=== PATIENT | male | born 1980 | race Caucasian/White ===

== ENCOUNTER 2024-05-23 19:10 | Emergency (ER) | payer OTHER, SELFPAY ==
[2024-05-23 19:10] VITALS: BP 167/107; PULSE 89; RESP 18; TEMP 36.8; O2SAT 98
--- NOTE | 2024-05-23 19:12 | PC.NURSE ---
TONYA NOVA AT THE BEDSIDE CLEANING WOUND
--- NOTE | 2024-05-23 19:13 | ED_ITS ---
HPI - Wound/Laceration General Chief Complaint: Wound/Laceration Stated Complaint: Laceration Injury Time Seen by Provider: 05/23/24 19:12 Source: patient Mode of arrival: ambulatory Limitations: no limitations History of Present Illness HPI narrative: 43-year-old male with a history of GERD, hypertension not on any medication accidentally slashed his left index finger while using his pocket knife. he presents to the ED with a C-shaped laceration over the dorsum of the left index finger over the PIP. Normal range of motion. Distal neurovascular bundle is intact. Patient is not up-to-date on his tetanus. Onset (ago): hour(s) ( 1 hour ago) Location: other ( right index finger) Extremity Location: Right: hand Body four view annotation: 2 1. 2 cm C-shaped laceration on the back of left index finger over the PIP. Place: home Patient tetanus UTD: No Context: accidental Associated symptoms: pain Related Data Allergies Allergy/AdvReac Type Severity Reaction Status Date / Time No Known Allergies Allergy Verified 05/23/24 19:48 Review of Systems 2 Review of Systems: All systems reviewed & are unremarkable except as noted in HPI and below PMFSH Past Medical History Medical History (Updated 05/23/24 @ 19:45 by Emir Rivas MD) GERD (gastroesophageal reflux disease) Hypertension Exam 2 Narrative: blood pressure 167/107. Afebrile. Const: General: no acute distress Nutritional Appearance: well nourished Orientation/consciousness: patient oriented x3 Limitations: no limitations HENMT: Head: normal to inspection Ears: external ears normal F jr/Nose/Sinus: Normal external nose present Face and sinus: normal facial exam Mouth: Yes Normal oral and palatal mucosa present Throat: posterior oropharynx normal Eyes: Conjunctivae: conjunctivae normal Pupils: Equal, round and reactive pupils present EOM: EOMs intact bilaterally Direct Ophthalmoscopy: no photophobia Neck: Neck: normal visual inspection, no lymphadenopathy and no meningeal signs Chest: Chest palpation & inspection: normal inspection of the chest Resp: Effort & Inspection: normal respiratory effort Auscultation: clear to auscultation bilaterally Cardio: Rate: regular rate Rhythm: regular rhythm GI: GI Palp: Yes Soft to palpation Auscultation: normal bowel sounds Skin: Other: C shaped laceration over the left index finger measuring 2 cm. laceration full-thickness skin laceration Neuro: General: patient oriented x3, moves all extremities, no meningeal signs, no focal motor deficits and CN's II-XI intact bilaterally Cranial nerves: Yes Nystagmus not present Speech: normal speech Gait exam (Neuro): Normal gait present Extrem: General: normal to inspection Other: finger laceration measuring 2 cm Psych: Mental Status: mental status grossly normal Affect: normal affect Attitude: cooperative Course Course Emergency Course: finger laceration-- sutured Vital Signs Vital signs: Vital Signs Temperature 36.8 C 05/23/24 19:10 Pulse Rate 89 05/23/24 19:10 Respiratory Rate 18 05/23/24 19:10 Blood Pressure 167/107 H 05/23/24 19:10 Pulse Oximetry 98 05/23/24 19:10 Oxygen Delivery Room Air 05/23/24 19:10 Temperature 36.8 C 05/23/24 19:10 Pulse Rate 89 05/23/24 19:10 Respiratory Rate 18 05/23/24 19:10 Blood Pressure 167/107 H 05/23/24 19:10 Pulse Oximetry 98 05/23/24 19:10 Oxygen Delivery Room Air 05/23/24 19:10 Procedures Laceration Laceration 1: Date: 05/23/24 Time: 19:15 Site: other ( finger laceration) Side (If applicable): left Size (cm): 2 Description: irregular Depth: simple, single layer Local Anesthetic: lidocaine 1% Amount of anesthesia used (mL): 5 Pre-repair: wound explored ====== Skin Level ====== Skin layer closed with: nylon Size (cm): 4-0 Number of sutures: 6 Technique: running ====== Subcutaneous Layer ====== ====== Muscle Layer ====== ====== Tendon Layer ====== MDM - Wound/Laceration MDM Narrative Medical decision making narrative: finger laceration hypertension-- patient has medication prescribed by his primary care physician but the patient is not taking it. Differential Diagnosis Differential diagnosis: Likely abrasion Discharge Plan Discharge Clinical Impression: Finger laceration Qualifiers: Encounter type: initial encounter Finger: index finger Damage to nail status: w ithout damage Foreign body presence: without foreign body Laterality: left Q ualified Code(s): S61.211A - Laceration without foreign body of left index finger without damage to nail, initial encounter Hypertension Qualifiers: Hypertension type: unspecified Qualified Code(s): I10 - Essential (primary) hypertension Patient Disposition: Home, Self-Care Condition: Stable Instructions: Antibiotic Form, Laceration (ED), Hypertension (ED) Additional Instructions: monitor for infection suture removal in 10 days use the finger splint for 5 days Patient Language: Faroese Prescriptions: New cephalexin 500 mg capsule 500 mg PO Q6H 7 Days Qty: 28 0RF Follow-up/Referrals: Tom Mckeon M.D. [Primary Care Provider] - Time of Disposition: 19:53
[2024-05-23] MEDS: TETANUS,DIPHTHERIA,AC PERTUSSIS ADULT 0.5 ML (ADACEL) IM (19:45)
[2024-05-23] MEDS: LIDOCAINE 1% LOCAL INJ 10 ML VIAL 5 ML INFILTRATE (19:45)
[2024-05-23] MEDS: CEPHALEXIN 500 MG CAPSULE PO (19:50)
[2024-05-23 19:53] VITALS: BP 160/103; PULSE 77; RESP 18; TEMP 37; O2SAT 97
--- NOTE | 2024-05-23 19:53 | PC.NURSE ---
DR PADILLA AWARE OF CURRENT BLOOD PRESSURE. CONTINUE WITH DISCHARGE. PATIENT IS TO FOLLOW UP WITH PCP WITHIN THE WEEK. DOES NOT WANT TO TAKE BLODO PRESSURE MEDICATIONS AT THIS TIME
--- NOTE | 2024-05-23 19:59 | PC.NURSE ---
[facility] SPLINT [facility] WOUND CARE COMPLETED BY TONYA NOVA
--- OUTSIDE RECORDS SUMMARY | 2024-05-28 02:40 | XMS_ITS | Encounter Summary ---
Author Organization [facility] Address [address] [place] [address]. [place] [address] [place] [address] Care Team Providers Care Pot Operator Name Role Phone Julio César Tello MD Primary Care Provider [phone] Reason for Referral * Procedure (Routine) - New Request Specialty Diagnoses / Procedures Referred By Veronique t Referred To Contact Diagnoses Chronic cough Procedures Complete PFT (pre/post Sujrit, Lung Vol, Diff Capacity) ([id number], [id number], [id number], [id number]) Annabel Cordoba PA [address] [place] [address] Phone: tel: fax: Referral ID Status Reason Start Date Expiration Date V isits Requested Visits Authorized [id number] New Request 12/18/2023 01/17/2025 1 1 Encounter Details Date Type Department Care Team (Late st Contact Info) Description 12/18/2023 Transcribe Orders [facility] Pre Access Team [address] [place] [address] Annabel Cordoba PA [address] [place] [address] Social History Tobacco Use Types Packs/Day Years Used Date Smoking Tobacco: Every Day Cigarettes Smokeless Tobacco: Never Alcohol Use Standard Drinks/Week Comments No 0 (1 standard drink = 0.6 oz pur e alcohol) AUDIT-C Answer Date Recorded Frequency of Alcohol Consumption Never 03/18/2019 Average Number of Drinks Not on file 019 Frequency of Binge Drinking Not on file 02/2019 Sex and Gender Information Value Date Recorded Sex Assigned at Not on file 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 The patient had spirometry before and after bronchodilators, lung volumes, diffusion lung capacity. Pulmonary function test is acceptable and reproducible. ??Spirometry was normal FEV1 is 3.26 liters or 84%. ??FVC 93% with normal ratio FEV1/FVC, no improvement with the bronchodilators, normal lung volumes. ??TLC 93% and diffusion lung capacity normal at 78%, went up to 94% when adjusted to the alveolar volume. IMPRESSION: Normal spirometry, lung volumes, and diffusion lung capacity. ?? Clinical correlation is required. Signature/Date: ? Chastity MIN MD D: ??01/16/2024 09:12 PM ??#[id number] T: ??01/16/2024 09:31 PM ??/NIT A copy of this report has been sent to: JULIO CÉSAR TELLO MD(Captimo) us Annabel Cordoba PA PFT ORDERABLES Final Result ESCRIPTION documented in this encounter Visit Diagnoses Diagnosis Chronic cough- Primary Cough Chronic cough Cough documented in this encounter Care Teams Pot Operator Relationship Specialty Start Date End Date Julio César Tello MD [address] [place] [address] PCP - General FAMILY PRACTICE 04/10/23 documented as of this encounter
--- OUTSIDE RECORDS SUMMARY | 2024-05-28 02:40 | XMS_ITS | Encounter Summary ---
Author Organization [facility] Address [address] [place] [address]. 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
--- OUTSIDE RECORDS SUMMARY | 2024-05-28 02:40 | XMS_ITS | Clinical Summary ---
Author Organization [facility] Address [address] [place] [address]. [place], [place] [id number] [place] [address] Care Team Providers Care Associate Professor Of Medicine Name Role Phone Julio César Tello MD Primary Care Provider [phone] Allergies No known active allergies Medications amLODIPine (NORVASC) 5 MG tablet Take 1 tablet (5 mg total) by mouth daily. 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 Gender Identity Not on file Sexual Orientation Not on file Last Filed Vital Signs Vital Sign Reading Time Taken Comments Blood Pressure 139/95 10/24/2023 3:45 PM CDT Pulse 90 10/24/2023 3:45 PM CDT Temperature 36.9 ??C (98.4 ??F) 10/24/2023 2:44 PM CD T Respiratory Rate 16 10/24/2023 2:44 PM CDT Oxygen Saturation 98% 10/24/2023 3:45 PM CDT Inhaled Oxygen Concentration - - Weight 113.4 kg (250 lb) 10/24/2023 2:44 PM CDT Height 175.3 cm (5' 9 ) 10/24/2023 2:44 PM CDT Body Mass Index 36.92 10/24/2023 2:44 PM CDT Plan of Treatment Health Maintenance Due Date Last Done Comments Annual Physical 1983 Pneumococcal Vaccine: Pediat rics (0 to 5 Years) and At-Risk Patients (6 to 64 Years) (1 of 2 - PCV) 1986 Hepatitis C 1998 DTaP, Tdap and Td Vaccines ( 1 - Tdap) 1999 Hepatitis B Vaccines (1 of 3 - 19+ 3-dose series) 1999 COVID-19 Vaccine (2 - 2023-2 5 season) 2024 01/10/2022 Influenza Adult (#1) 2024 HPV Vaccines Aged Out No longer eligi ble based on patient's age to complete this topic Meningococcal Vaccine Aged Out No marcos robert eligible based on patient's age to complete this topic RSV Immunizations Under 20 Months Aged Out No longer eligible based on patient's age to complete this topic Insurance [employer] Care Teams Associate Professor Of Medicine Relationship Specialty Start Date End Date Julio César Tello MD [address] [place] [phone] PCP - General FAMILY PRACTICE 04/10/23
--- OUTSIDE RECORDS SUMMARY | 2024-05-28 02:40 | XMS_ITS | Encounter Summary ---
Author Organization [facility] Address [address] [place] [address]. 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
--- OUTSIDE RECORDS SUMMARY | 2024-05-28 02:40 | XMS_ITS | Encounter Summary ---
Author Organization [facility] Address [address] [place] [address]. 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 [place] [address] PCP - General FAMILY PRACTICE 04/10/23 documented as of this encounter
--- OUTSIDE RECORDS SUMMARY | 2024-05-28 02:40 | XMS_ITS | Encounter Summary ---
Author Organization [facility] Address [address] [place] [address]. [place], [place] [id number] [place] [address] Care Team Providers Care Administration Specialist Name Role Phone Tom Mckeon MD Primary Care Provider +- [phone] Reason for Referral * Imaging (Emergency) - Closed Specialty Diagnoses / Procedures Referred By Contzoey t Referred To Contact RADIOLOGY Procedures CT HEAD WO CON Angel Villarreal MD Phone: tel: fax: Referral ID Status Reason Start Date Expiration Date Visits Re quested Visits Authorized [id number] Closed 03/18/2019 04/18/2020 1 1 Reason for Visit * Reason Comments Dizziness Encounter Details Date Type Department Care Team (Late st Contact Info) Description 03/18/2019 7:02 PM CDT - 03/18/2019 9:06 PM CDT Emergency [facility] [address] [place] [address] [place] [address] Angel Villarreal MD [address] [place] [address] [id number] Dizziness Discharge Disposition: Home or Self Care (Routine Discharge) Social History Tobacco Use Types Packs/Day Years [...] on file Legal Sex Male 5:59 PM ORDERLY Gender Identity Not on file Sexual Orientation Not on file documented as of this encounter Last Filed Vital Signs Vital Sign Reading Time Taken Comments Blood Pressure 138/83 03/18/2019 7:02 PM CDT Pulse 80 03/18/2019 7:02 PM CDT Temperature 36.7 ??C (98.1 ??F) 03/18/2019 7:02 PM CD T Respiratory Rate 18 03/18/2019 7:02 PM CDT Oxygen Saturation 99% 03/18/2019 7:02 PM CDT Inhaled Oxygen Concentration - - Weight 74.8 kg (165 lb) 03/18/2019 7:02 PM CDT Height 177.8 cm (5' 10 ) 03/18/2019 7:02 PM CDT Body Mass Index 23.68 03/18/2019 7:02 PM CDT documented in this encounter Discharge Instructions * Attachments The following attachments cannot be sent through Care Everywhere. * Vertigo (a Type of Dizziness) Discharge Instructions (Bhutanese) documented in this encounter Medications at Time of Discharge meclizine 25 MG chewable tablet 25-50mg three times a day as needed for dizziness 20 tablet 03/18/2019 3 ondansetron 4 MG disintegrating tablet Take 1 tablet (4 mg total) by mouth every 6 (six) hours as needed. 10 tablet 03/18/2019 3 documented as of this encounter ED Notes * Carolyne Redman RN - 03/18/2019 8:16 PM CDT Pt had lg emesis * Carolyne Redman RN - 03/18/2019 7:27 PM CDT Pt returned to the ER from radiology * Carolyne Redman RN - 03/18/2019 7:22 PM CDT Pt to radiology for CT * Donna Mckenzie RN - 03/18/2019 6:59 PM CDT Dizziness, onset 729, states the dizziness also makes him vomit. Recently had a cold. * Angel Villarreal MD - 03/18/2019 6:57 PM CDT eMERGENCY dEPARTMENT eNCOUnter I, marianela Gaytan, am personally taking down the notes in the presence of Angel Villarreal MD.?Take no action on this note until reviewed and authenticated??by the physician. CHIEF COMPLAINT Chief Complaint Patient presents with ??? Dizziness HPI History provided by: Patient Evan Roberts is a 38-year-old male who presents to the ER with a complaint of dizziness x 12 hours. Patient notes associated symptoms of visual disturbances, nausea, and vomiting. He denies headache, CP, SOB, fever, chills, and abdominal pain. He notes he feels like the room is spinning and it isworse when he turns his head. Per medical record, patient has bipolar disorder and no surgical histo ry was noted. No other positive complaints were reported upon review of systems. ALLERGIES No Known Allergies CURRENT MEDICATIONS Current Outpatient Medications Medication Sig ??? meclizine 25 MG chewable tablet 25-50mg three times a day as needed for dizziness ??? ondansetron 4 MG disintegrating tablet Take 1 tablet (4 mg total) by mouth every 6 (six) hours as needed. PAST MEDICAL HISTORY Past Medical History: Diagnosis Date ??? Bipolar disorder ([facility]) SURGICAL HISTORY History reviewed. No pertinent surgical history. SOCIAL HISTORY Social History Socioeconomic History ??? Marital status: Single Spouse name: Not on file ??? Number of children: Not on file ??? Years of education: Not on file ??? Highest education level: Not on file Occupational History ??? Not on file Social Needs ??? Financial resource strain: Not on file ??? Food insecurity: Worry: Not on file Inability: Not on file ??? Transportation needs: Medical: Not on file Non-medical: Not on file Tobacco Use ??? Smoking status: Current Every Day Smoker Types: Cigarettes ??? Smokeless tobacco: Never Used Substance and Sexual Activity ??? Alcohol use: No Frequency: Never ??? Drug use: Not on file ??? Sexual activity: Not on file Lifestyle ??? Physical activity: Days per week: Not on file Minutes per session: Not on file ??? Stress: Not on file Relationships ??? Social connections: Talks on phone: Not on file Gets together: Not on file Attends religion service: Not on file Active member of club or organization: Not on file Attends meetings of clubs or organizations: Not on file Relationship status: Not on file ??? Intimate partner violence: Fear of current or ex partner: Not on file Emotionally abused: Not on file Physically abused: Not on file Forced sexual activity: Not on file Other Topics Concern ??? Not on file Social History Narrative ??? Not on file FAMILY HISTORY No family history on file. REVIEW OF SYSTEMS Review of Systems Constitutional: Negative. Negative for chills and fever. HENT: Negative. Eyes: Positive for visual disturbance. Respiratory: Negative. Negative for shortness of breath. Cardiovascular: Negative. Negative for chest pain. Gastrointestinal: Positive for nausea and vomiting. Negative for abdominal pain. Endocrine: Negative. Genitourinary: Negative. Musculoskeletal: Negative. Skin: Negative. Allergic/Immunologic: Negative. Neurological: Positive for dizziness. Negative for headaches. Hematological: Negative. Psychiatric/Behavioral: Negative. All other ROS negative unless noted above in HPI. PHYSICAL EXAM Physical Exam Nursing note and vitals reviewed. Generalized Appearance: No apparent distress. Well developed. Well nourished. Skin: Warm and dry. No rash. Head: Normocephalic and atraumatic. Rotation of head reproduces symptoms. Eyes: Conjunctiva clear with no scleral icterus or jaundice. PERRL/EOMI Neck: Supple. Back: Normal ROM. Chest and Respiratory: Airway patent. Breath sounds equal. Lungs clear with auscultation. No stridor, wheezes, rales, or rhonchi. No accessory muscle use. No respiratory distress. Cardiovascular: Regular rate and rhythm. No murmur, rubs, or gallops. Abdominal: Non-tender. Bowel sounds present. Soft. Non-distended. No obvious masses or hernias. No rebound, guarding, or rigidity. Vascular: Brisk capillary refill. Radial pulses 2+ bilaterally. No edema to BLE. Musculoskeletal: Normal ROM. No deformity. Neurologic: Alert and oriented x 3. No gross motor deficits. Mental Status: Normal affect. Genital-Rectal: male deferred Filed Vitals: 03/18/19 1902 BP: 138/83 Pulse: 80 Resp: 18 Temp: 98.1 ??F (36.7 ??C) TempSrc: Temporal SpO2: 99% Weight: 74.8 kg (165 lb) Height: 5' 10 (1.778 m) EKG RADIOLOGY CT HEAD WO CON Final Result by User, [id number] (03/18 2016) CLINICAL INDICATION: 38-year-old with dizziness onset this morning. Emesis. Has a cold. TECHNIQUE: Non- enhanced CT of the brain is obtained according to standard protocol Images are filmed in soft tissue and bone window settings. Dose lowering technique was used for this study which may include, but is not limited to, dose reduction techniques, automated exposure control, use of iterative reconstruction and ALARA (As low As Reasonably Achievable)/Image Gently techniques. COMPARISON: Nonenhanced CT brain 01/22/2014 FINDINGS: There is no evidence of acute intracranial hemorrhage. No abnormal extra-axial fluid collections. There is no abnormal mass lesion or evidence of cerebral edema. There is redemonstration of cavum septum pellucidum and vergae. There is no change in the measured size of diffuse ventriculomegaly including the variant midline cavum and the third ventricle and the lateral ventricles. There is also symmetric ventriculomegaly of the temporal horns. The fourth ventricle is normal in size. Although stable since 2013 this raises the possibility of noncommunicating hydrocephalus. If symptoms persist or worsen, consider initiating workup which might include functional/dynamic MRI. Bilateral symmetric normal cerebral sulci.... The lee/white matter junctions are maintained.. The basilar cisterns are not effaced. Calcifications are present in the choroid plexus and pineal region. The orbits appear grossly intact. There is no linear or depressed calvarial fracture. The paranasal sinuses and mastoid air cells are clear. IMPRESSION: 1. No acute intracranial abnormality. 2. Stable, normal variant cavum septa pellucidum and vergae 3. Stable measured ventriculomegaly with normal size fourth ventricle raises the possibility of noncommunicating hydrocephalus. 4. Although stable since 2013 this raises the possibility of noncommunicating hydrocephalus. If symptoms persist or worsen, consider initiating workup which might include functional/dynamic MRI. Interpreted By: Mary Chino DO, 03/18/2019 8:07 PM LABS No results found for this visit on 03/18/19. ED MEDICATIONS Medications ondansetron (ZOFRAN-ODT) disintegrating tablet 4 mg (4 mg Oral Given 03/18/191939) meclizine (ANTIVERT) tablet 50 mg (50 mg Oral Given 03/18/191939) promethazine (PHENERGAN) injection 25 mg (25 mg Intramuscular Given 03/18/192042) PROCEDURES Procedures CONSULTS: ED COURSE & MEDICAL DECISION MAKING MDM Patient's history and exam most consistent with benign positional vertigo. Because he never had this before I will obtain CT scan just to make sure there is no unusual causes centrally. His symptoms however are more consistent with peripheral symptoms. Patient only mildly improved but would like totry to go home. His symptoms continue to be reproduced with change in position. We will treat him for positional vertigo and add nausea medication and he implied he was in the process of trying to get established with Dr. Delfin Tello. Close follow-up was recommended. FINAL IMPRESSION SNOMED CT(R) 1. Benign positional vertigo BENIGN PAROXYSMAL POSITIONAL VERTIGO Julio César Tello MD [address] [place] [phone] Schedule an appointment as soon as possible for a visit If symptoms worsen New Prescriptions MECLIZINE 25 MG CHEWABLE TABLET 25-50mg three times a day as needed for dizziness ONDANSETRON 4 MG DISINTEGRATING TABLET Take 1 tablet (4 mg total) by mouth every 6 (six) hours as needed. Medications ondansetron (ZOFRAN-ODT) disintegrating tablet 4 mg (4 mg Oral Given 03/18/191939) meclizine (ANTIVERT) tablet 50 mg (50 mg Oral Given 03/18/191939) promethazine (PHENERGAN) injection 25 mg (25 mg Intramuscular Given 03/18/192042) Current Discharge Medication List START taking these medications Details meclizine 25 MG chewable tablet 25-50mg three times a day as needed for dizziness Qty: 20 tablet, Refills: 0 Class: Eprescribe Pharmacy: [facility] [address] [place] [address] (Ph #: [phone]) ondansetron 4 MG disintegrating tablet Take 1 tablet (4 mg total) by mouth every 6 (six) hours as needed. Qty: 10 tablet, Refills: 0 Class: Eprescribe Pharmacy: [facility] [address] [place] [address] (Ph #: [phone]) Julio César Tello MD [address] [facility] [phone] Schedule an appointment as soon as possible for a visit If symptoms worsen Henry Conti, 03/18/19, 19:20. Provider Attestation: Portions of this note were transcribed by the scribe. Angel [place], personally performed the history, physical exam and medical decision making; and confirmed the accuracy of the information inthe transcribed note. Authenticated by Angel Villarreal MD 03/18/192052 documented in this encounter Plan of Treatment Not on file documented as of this encounter Procedures Procedure Name Priority Date/Time Associated Diagnosis Comments CT HEAD WO CON STAT 03/18/2019 7:26 PM CDT documented in this encounter Results * CT HEAD WO CON (03/18/2019 7:26 PM CDT) Anatomical Region Laterality Modality Head Computed Tomogra phy 03/18/2019 8:07 PM CDT Impressions 03/18/2019 8:15 PM CDT IMPRESSION: 1. No acute intracranial abnormality. 2. ??Stable, normal variant cavum septa pellucidum and vergae 3. ??Stable measured ventriculomegaly with normal size fourth ventricle raises the possibility of noncommunicating hydrocephalus. 4. Although stable since 2013 this raises the possibility of noncommunicating hydrocephalus. ??If symptoms persist or worsen, consider initiating workup which might include functional/dynamic MRI. Interpreted By: Mary Chino DO, 03/18/2019 8:07 PM Narrative 03/18/2019 8:15 PM CDT CLINICAL INDICATION: 38-year-old with dizziness onset this morning. ??Emesis. ??Has a cold. TECHNIQUE: Non- enhanced CT of the brain is obtained according to standard protocol ??Images are filmed in soft tissue and bone window settings. Dose lowering technique was used for this study which may include, but is not limited to, dose reduction techniques, automated exposure control, use of iterative ??reconstruction and ALARA (As low As Reasonably Achievable)/Image Gently techniques. COMPARISON: Nonenhanced CT brain 01/22/2014 FINDINGS: There is no ??evidence of acute intracranial hemorrhage. No abnormal extra-axial fluid collections. There is no abnormal mass lesion or evidence of cerebral edema. ?? There is redemonstration of cavum septum pellucidum and vergae. ??There is no change in the measured size of diffuse ventriculomegaly including the variant midline cavum and the third ventricle and the lateral ventricles. ??There is also symmetric ventriculomegaly of the temporal horns. ??The fourth ventricle is normal in size. ??Although stable since 2013 this raises the possibility of noncommunicating hydrocephalus. ??If symptoms persist or worsen, consider initiating workup which might include functional/dynamic MRI. Bilateral symmetric normal cerebral sulci.... ??The lee/white matter junctions are maintained.. The basilar cisterns are not effaced. Calcifications are present in the choroid plexus and pineal region. The orbits appear grossly intact. There is no linear or depressed calvarial fracture. The paranasal sinuses and mastoid air cells are clear. Procedure Note Mary Chino MD - 03/18/2019 CLINICAL INDICATION: 38-year-old with dizziness onset this morning. Emesis. Has a cold. TECHNIQUE: Non- enhanced CT of the brain is obtained according to standard protocolImages are filmed in soft tissue and bone window settings. Dose lowering technique was used for this study which may include, but isnot limited to, dose reduction techniques, automated exposure control, useof iterative reconstruction and ALARA (As low As ReasonablyAchievable)/Image Gently techniques. COMPARISON: Nonenhanced CT brain 01/22/2014 FINDINGS: There is no evidence of acute intracranial hemorrhage. No abnormalextra-axial fluid collections. There is no abnormal mass lesion orevidence of cerebral edema. There is redemonstration of cavum septum pellucidum and vergae. There isno change in the measured size of diffuse ventriculomegaly including thevariant midline cavum and the third ventricle and the lateral ventricles.There is also symmetric ventriculomegaly of the temporal horns. Thefourth ventricle is normal in size. Although stable since 2013 thisraises the possibility of noncommunicating hydrocephalus. If symptomspersist or worsen, consider initiating workup which might includefunctional/dynamic MRI. Bilateral symmetric normal cerebral sulci.... The lee/white matterjunctions are maintained.. The basilar cisterns are not effaced.Calcifications are present in the choroid plexus and pineal region. The orbits appear grossly intact. There is no linear or depressed calvarial fracture. The paranasal sinuses and mastoid air cells are clear. IMPRESSION: 1. No acute intracranial abnormality. 2. Stable, normal variant cavum septa pellucidum and vergae 3. Stable measured ventriculomegaly with normal size fourth ventricleraises the possibility of noncommunicating hydrocephalus. 4. Although stable since 2013 this raises the possibility ofnoncommunicating hydrocephalus. If symptoms persist or worsen, considerinitiating workup which might include functional/dynamic MRI. Interpreted By: Mary Chino DO, 03/18/2019 8:07 PM Angel Villarreal MD CT Final Result documented in this encounter Visit Diagnoses Diagnosis Benign positional vertigo- Primary Benign paroxysmal positional vertigo documented in this encounter Administered Medications Inactive Administered Medications - up to 3 most recent administrations Medication Order MAR Action Action Date Dose Rate Site meclizine (ANTIVERT) tablet 50 mg 50 mg, Oral, Once, 1 dose, On Sat03/18/19 at 1930 Given 03/18/2019 7:40 PM CDT 50 mg ondansetron (ZOFRAN-ODT) disintegrating tablet 4 mg 4 mg, Oral, Once, 1 dose, On Sat03/18/19 at 1930 Given 03/18/2019 7:40 PM CDT 4 mg promethazine (PHENERGAN) injection 25 mg 25 mg, Intramuscular, Once, 1 dose, On Sat03/18/19 at 2044 Given 03/18/2019 8:43 PM CDT 25 mg Right Deltoid documented in this encounter Active and Recently Administered Medications Times are shown in CDT. Scheduled Medication Order 03/16/2019 03/17/2019 03/18/2019 meclizine (ANTIVERT) tablet 50 mg (COMPLETED) 50 mg, Oral, Once, 1 dose, On Sat03/18/19 at 193 1940 (Given - Provid er: Carolyne Redman RN) ondansetron (ZOFRAN-ODT) disintegrating tablet 4 mg (COMPLETED) 4 mg, Oral, Once, 1 dose, On Sat03/18/19 at 193 1940 (Given - Provid er: Carolyne Redman RN) promethazine (PHENERGAN) injection 25 mg (COMPLETED) 25 mg, Intramuscular, Once, 1 dose, On Sat03/18/19 at 2044 2042 (Given - Provid er: Carolyne Redman RN) documented in this encounter Care Teams Administration Specialist Relationship Specialty Start Date End Date Tom Mckeon MD [facility] [place] [phone] PCP - General FAMILY PRACTICE 02/06/19 04/09/23 documented as of this encounter
--- OUTSIDE RECORDS SUMMARY | 2024-05-28 02:40 | XMS_ITS | Encounter Summary ---
Author Organization [facility] Address [address] [place] [address]. 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
--- OUTSIDE RECORDS SUMMARY | 2024-05-28 02:40 | XMS_ITS | Encounter Summary ---
Author Organization [facility] Address [address] [place] [address]. 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
--- OUTSIDE RECORDS SUMMARY | 2024-05-28 02:40 | XMS_ITS | Encounter Summary ---
Author Organization [facility] Address [address] [place] [address]. [place], [place] [address] [place] [address] Care Team Providers Care Dental Receptionist Name Role Phone Julio César Tello MD Primary Care Provider [phone] Reason for Referral * Imaging (Routine) - Closed Specialty Diagnoses / Procedures Referred By Veronique babcock Referred To Contact RADIOLOGY Diagnoses Family history of abdominal aortic aneurysm Procedures USV AORTA ILIAC IVC DUPLEX COMP Julio César Tello MD [address] [place] [address] Phone: tel: fax: Referral ID Status Reason Start Date Expiration Date Visits Re quested Visits Authorized [id number] Closed 05/20/2023 08/18/2023 1 1 NHOUSE GROWER Reason for Visit * Imaging (Routine) - Closed Specialty Diagnoses / Procedures Referred By Veronique babcock Referred To Contact RADIOLOGY Diagnoses Family history of abdominal aortic aneurysm Procedures USV AORTA ILIAC IVC DUPLEX COMP Julio César Tello MD [address] [place] [address] Phone: tel: fax: Referral ID Status Reason Start Date Expiration Date Visits Re quested Visits Authorized [id number] Closed 05/20/2023 08/18/2023 1 1 Encounter Details Date Type Department Care Team (Late st Contact Info) Description 07/04/2023 8:48 AM GREENHOUSE GROWER - 07/04/2023 11:59 PM GREENHOUSE GROWER Hospital Encounter [facility] [address] [place] [address] Julio César Tello MD [address] [place] [address] Discharge Disposition: Home or Self Care (Routine [...] on file Legal Sex Male 5:59 PM GREENHOUSE GROWER Gender Identity Not on file Sexual Orientation Not on file documented as of this encounter Medications at Time of Discharge amLODIPine (NORVASC) 5 MG tablet Take 1 tablet (5 mg total) by mouth daily. 30 tablet 1 04/10/2023 documented as of this encounter Plan of Treatment Not on file documented as of this encounter Procedures Procedure Name Priority Date/Time Associated Diagnosis Comments USV AORTA ILIAC IVC DUPLEX COMP Routine 07/04/2023 9:18 AM GREENHOUSE GROWER Family history of abdominal aortic aneurysm documented in this encounter Results * USV AORTA ILIAC IVC DUPLEX COMP (07/04/2023 9:18 AM GREENHOUSE GROWER) Anatomical Region Laterality Modality NA Ultrasound 07/04/2023 11:3 2 AM GREENHOUSE GROWER Impressions 07/04/2023 11:35 AM GREENHOUSE GROWER IMPRESSION: Technically limited due to morbid obesity. No significant aneurysmal dilatation of the aortobiiliac arteries. Elevated bilateral iliac velocities may be tortuosity or stenosis related. Consider a workup with CT angiogram aorta. Ordered By: JULIO CÉSAR TELLO Interpreted By: Lui Mccall MD, 07/04/2023 11:32 AM Narrative 07/04/2023 11:35 AM [facility]HOUSE [facility] Examination: USV AORTA ILIAC IVC DUPLEX COMP Exam time: 07/04/2023 8:51 AM Clinical history: Family history of abdominal aortic aneurysm. Patient here for AAA screening. Morbid obesity. Comparison: None Technique: Grayscale and color Doppler and spectral Doppler analysis of the aorta and common iliac arteries performed. The inferior vena cava is also evaluated. Findings: Moderate obesity limits ultrasound technology. No significant aneurysmal dilatation of the abdominal aorta. Maximum diameter is approximately 2.5 cm at the mid abdominal aorta. No significant dilation of the iliac arteries. Blood flow is maintained in the vessels. There is a triphasic aortic waveform with a velocity of approximately 87 cm/s proximally, 44 cm/s mid, and 1 26 cm/s distally. Right iliac velocity 208 cm/s. Left iliac velocity 217 cm/s. The inferior vena cava shows a patent lumen. Procedure Note Lui Mccall MD - 07/04/2023 Examination: USV AORTA ILIAC IVC DUPLEX COMP Exam time: 07/04/2023 8:51 AM Clinical history: Family history of abdominal aortic aneurysm. Patienthere for AAA screening. Morbid obesity. Comparison: None Technique: Grayscale and color Doppler and spectral Doppler analysis ofthe aorta and common iliac arteries performed. The inferior vena cava isalso evaluated. Findings: Moderate obesity limits ultrasound technology. No significantaneurysmal dilatation of the abdominal aorta. Maximum diameter isapproximately 2.5 cm at the mid abdominal aorta. No significant dilationof the iliac arteries. Blood flow is maintained in the vessels. There is atriphasic aortic waveform with a velocity of approximately 87 cm/sproximally, 44 cm/s mid, and 1 26 cm/s distally. Right iliac velocity 208cm/s. Left iliac velocity 217 cm/s. The inferior vena cava shows a patent lumen. IMPRESSION: Technically limited due to morbid obesity. No significant aneurysmal dilatation of the aortobiiliac arteries. Elevated bilateral iliac velocities may be tortuosity or stenosis related.Consider a workup with CT angiogram aorta. Ordered By: JULIO CÉSAR TELLO Interpreted By: Lui Mccall MD, 07/04/2023 11:32 AM Julio César Tello MD VASC Final Result documented in this encounter Visit Diagnoses Diagnosis Family history of abdominal aortic aneurysm Family history of other cardiovascular diseases documented in this encounter Care Teams Dental Receptionist Relationship Specialty Start Date End Date Julio César Tello MD [address] [place] [address] PCP - General FAMILY PRACTICE 04/10/23 documented as of this encounter
--- OUTSIDE RECORDS SUMMARY | 2024-05-28 02:40 | XMS_ITS | Encounter Summary ---
Author Organization [facility] Address [address] [place] [address]. 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
--- OUTSIDE RECORDS SUMMARY | 2024-05-28 02:40 | XMS_ITS | Encounter Summary ---
Author Organization [facility] Address [address] [place] [address]. [place] [address] [place] [address] Care Team Providers Care Percussion Welding Machine Operator Name Role Phone Unavailable Primary Care Provider Unavailabl e Encounter Details Date Type Department Care Team (Late st Contact Info) Description 12/17/2013 Abstract [facility] [address] [facility] [place] [address] Sathish Humphreys MD [address] [address] Social History Tobacco Use Types Packs/Day Years Used Date Smoking Tobacco: Never Assessed Sex and Gender Information Value Date Recorded Sex Assigned at Not on file Legal Sex Male 5:59 PM CHARGE WEIGHER Gender Identity Not on file Sexual Orientation Not on file documented as of this encounter Plan of Treatment Not on file documented as of this encounter Visit Diagnoses Diagnosis Foot and toe(s), blister Foot and toe(s), blister, without mention of infection documented in this encounter
--- OUTSIDE RECORDS SUMMARY | 2024-05-28 02:40 | XMS_ITS | Encounter Summary ---
Author Organization [facility] Address [address] [place] [address]. [place], [place] [address] [place] [address] Care Team Providers Care Requirements Manager Name Role Phone Unavailable Primary Care Provider Unavailabl e Encounter Details Date Type Department Care Team (Late st Contact Info) Description 09/26/1995 Abstract [facility] [address] [place] [address] , Generic Conversion, Social History Tobacco Use Types Packs/Day Years Used Date Smoking Tobacco: Never Assessed Sex and Gender Information Value Date Recorded Sex Assigned at Not on file Legal Sex Male 5:59 PM DISPLAYER MERCHANDISE Gender Identity Not on file Sexual Orientation Not on file documented as of this encounter Plan of Treatment Not on file documented as of this encounter Visit Diagnoses Not on filedocumented in this encounter
--- OUTSIDE RECORDS SUMMARY | 2024-05-28 02:40 | XMS_ITS | Encounter Summary ---
Author Organization [facility] Address [address] [place] [address]. [place], [place] [address] [place] [address] Care Team Providers Care Food Dehydrator Operator Name Role Phone Julio César Tello MD Primary Care Provider [phone] Encounter Details Date Type Department Care Team (Latest Contact Info) Description 04/10/2023 Travel Social History Tobacco Use Types Packs/Day [...] on file Legal Sex Male 5:59 PM PERFORMANCE TEST ARCHITECT Gender Identity Not on file Sexual Orientation Not on file documented as of this encounter Plan of Treatment Not on file documented as of this encounter Visit Diagnoses Not on filedocumented in this encounter Care Teams Food Dehydrator Operator Relationship Specialty Start Date End Date Julio César Tello MD [address] [facility] [place] [address] PCP - General FAMILY PRACTICE 04/10/23 documented as of this encounter
--- OUTSIDE RECORDS SUMMARY | 2024-05-28 02:40 | XMS_ITS | Encounter Summary ---
Author Organization [facility] Address [address] [place] [address]. 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
--- OUTSIDE RECORDS SUMMARY | 2024-05-28 02:40 | XMS_ITS | Encounter Summary ---
Author Organization [facility] Address [address] [place] [address]. [place], [place] [address] [place] [address] Care Team Providers Care Treasury Associate Name Role Phone Unavailable Primary Care Provider Unavailabl e Encounter Details Date Type Department Care Team (Late st Contact Info) Description 05/23/1995 Abstract [facility] [address] [place] [address] , Generic Conversion, Social History Tobacco Use Types Packs/Day Years Used Date Smoking Tobacco: Never Assessed Sex and Gender Information Value Date Recorded Sex Assigned at Not on file Legal Sex Male 5:59 PM CUSTOM WOOD STAIR BUILDER Gender Identity Not on file Sexual Orientation Not on file documented as of this encounter Plan of Treatment Not on file documented as of this encounter Visit Diagnoses Not on filedocumented in this encounter
--- OUTSIDE RECORDS SUMMARY | 2024-05-28 02:40 | XMS_ITS | Encounter Summary ---
Author Organization [facility] Address [address] [place] [address]. 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
--- OUTSIDE RECORDS SUMMARY | 2024-05-28 02:40 | XMS_ITS | Encounter Summary ---
Author Organization [facility] Address [address] [place] [address]. [place], [place] [address] [place] [address] Care Team Providers Care Granite Countertop Installer Name Role Phone Julio César Tello MD Primary Care Provider Reason for Referral * Procedure (Routine) - New Request Specialty Diagnoses / Procedures Referred By Contac t Referred To Contact Diagnoses Chronic cough Procedures Complete PFT (pre/post Surjit, Lung Vol, Diff Capacity) (08043, 61906, 15308, 75160) Annabel Cordoba PA [address] [place] [address] Phone: tel: fax: Referral ID Status Reason Start Date Expiration Date V isits Requested Visits Authorized [id number] New Request 12/18/2023 01/17/2025 1 1 Reason for Visit * Procedure (Routine) - New Request Specialty Diagnoses / Procedures Referred By Contac t Referred To Contact Diagnoses Chronic cough Procedures Complete PFT (pre/post [place], Lung Vol, Diff Capacity) (33605, 23686, 86803, 12343) Annabel Cordoba PA [address] [place] [address] Phone: tel: fax: Referral ID Status Reason Start Date Expiration Date V isits Requested Visits Authorized [id number] New Request 12/18/2023 01/17/2025 1 1 Encounter Details Date Type Department Care Team (Late st Contact Info) Description 01/15/2024 8:43 AM CDT - 01/15/2024 10:18 AM CDT Hospital Encounter [facility] [address] [place] [address] Annabel Cordoba PA [address] [place] [address] Discharge Disposition: Home or Self Care (Routine [...] on file Legal Sex Male 5:59 PM JEWELRY SETTER Gender Identity Not on file Sexual Orientation Not on file documented as of this encounter Medications at Time of Discharge amLODIPine (NORVASC) 5 MG tablet Take 1 tablet (5 mg total) by mouth daily. 30 tablet 1 04/10/2023 documented as of this encounter Plan of Treatment Not on file documented as of this encounter Procedures Procedure Name Priority Date/Time Associated Diagnosis Comments PULMONARY FUNCTION TEST Routine 01/15/2024 8:43 AM CDT Chronic cough documented in this encounter Results * Complete PFT (pre/post Surjit, Lung Vol, Diff Capacity) (34491, 42704, 47658, 51855) (01/15/2024 8:43 AM CDT) 01/15/2024 8:43 AM CDT Narrative ESCRIPTION - 01/20/2024 12:44 PM CDT Patient Name: RADHA CARTWRIGHT Date of : 1980 Account: [id number] Facility: [facility] Location: [facility] Date of Service: 01/15/2024 Pulmonary Function Test [...] Chastity MIN MD D: ??01/16/2024 09:12 PM ??#[id number] T: ??01/16/2024 09:31 PM ??/NIT A copy of this report has been sent to: JULIO CÉSAR TELLO MD(Autofax) Annabel WATSON PFT ORDERABLES Final Result ESCRIPTION documented in this encounter Visit Diagnoses Diagnosis Chronic cough Cough documented in this encounter Administered Medications Inactive Administered Medications - up to 3 most recent administrations Medication Order MAR Action Action Date Dose Rate Site albuterol sulfate HFA 108 (90 Base) MCG/ACT inhaler 4 puff 4 puff, Inhalation, Once, 1 dose, On Sat01/15/24 at 0915 Given 01/15/2024 9:13 AM CDT 4 puffs documented in this encounter Care Teams Granite Countertop Installer Relationship Specialty Start Date End Date Julio César Tello MD [address] [facility] [place] [address] PCP - General FAMILY PRACTICE 04/10/23 documented as of this encounter
--- OUTSIDE RECORDS SUMMARY | 2024-05-28 02:40 | XMS_ITS | Encounter Summary ---
Author Organization [facility] Address [address] [place] [address]. [place], [place] [address] [place] [address] Care Team Providers Care Battery Checker Name Role Phone Unavailable Primary Care Provider Unavailabl e Encounter Details Date Type Department Care Team (Late st Contact Info) Description 08/10/1997 Abstract [facility] [address] [place] [address] , Generic Conversion, Social History Tobacco Use Types Packs/Day Years Used Date Smoking Tobacco: Never Assessed Sex and Gender Information Value Date Recorded Sex Assigned at Not on file Legal Sex Male 5:[address]PERVISOR Gender Identity Not on file Sexual Orientation Not on file documented as of this encounter Plan of Treatment Not on file documented as of this encounter Visit Diagnoses Not on filedocumented in this encounter
--- OUTSIDE RECORDS SUMMARY | 2024-05-28 02:40 | XMS_ITS | Encounter Summary ---
Author Organization [facility] Address [address] [place] [address]. 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
--- OUTSIDE RECORDS SUMMARY | 2024-05-28 02:40 | XMS_ITS | Encounter Summary ---
Author Organization [facility] Address [address] [place] [address]. [place], [place] [address] [place] [address] Care Team Providers Care National Van Owner Operator Name Role Phone Unavailable Primary Care Provider Unavailabl e Encounter Details Date Type Department Care Team (Late st Contact Info) Description 01/30/2014 Abstract [facility] [address] [facility] [address] Ronnie Alejandro MD [address] [place] [phone] Social History Tobacco Use Types Packs/Day Years Used Date Smoking Tobacco: Never Assessed Sex and Gender Information Value Date Recorded Sex Assigned at Not on file Legal Sex Male 5:59 PM WET PAN MIXER Gender Identity Not on file Sexual Orientation Not on file documented as of this encounter Plan of Treatment Not on file documented as of this encounter Visit Diagnoses Diagnosis Bipolar affective disorder ([facility]) Bipolar disorder, unspecified documented in this encounter
--- OUTSIDE RECORDS SUMMARY | 2024-05-28 02:40 | XMS_ITS | Encounter Summary ---
Author Organization [facility] Address [address] [place] [address]. [place], [place] [address] [place] [address] Care Team Providers Care Math Interventionist Name Role Phone Unavailable Primary Care Provider Unavailabl e Encounter Details Date Type Department Care Team (Late st Contact Info) Description 08/16/1997 Abstract [facility] [address] [place] [address] , Generic Conversion, Social History Tobacco Use Types Packs/Day Years Used Date Smoking Tobacco: Never Assessed Sex and Gender Information Value Date Recorded Sex Assigned at Not on file Legal Sex Male 5:59 PM TIRE LAYER Gender Identity Not on file Sexual Orientation Not on file documented as of this encounter Plan of Treatment Not on file documented as of this encounter Visit Diagnoses Not on filedocumented in this encounter
--- OUTSIDE RECORDS SUMMARY | 2024-05-28 02:40 | XMS_ITS | Encounter Summary ---
Author Organization [facility] Address [address] [place] [address]. [place] [address] [place] [address] Care Team Providers Care Natural Resources Extension Educator Name Role Phone Julio César Tello MD Primary Care Provider [phone] Reason for Visit * Reason Comments Dizziness Hypertension Follow Up Encounter Details Date Type Department Care Team (Late st Contact Info) Description 04/10/2023 8:53 AM CDT - 04/10/2023 9:40 AM CDT Emergency [place] [place] [address] Angel Navas MD [address] [place] [id number] Dizziness; Hypertension Follow Up Discharge Disposition: Home or Self Care (Routine [...] on file Legal 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 Gender Identity Not on file Sexual Orientation Not on file documented as of this encounter Last Filed Vital Signs Vital Sign Reading Time Taken Comments Blood Pressure 135/92 04/10/2023 9:30 AM CDT Pulse 75 04/10/2023 9:30 AM CDT Temperature 36.2 ??C (97.2 ??F) 04/10/2023 9:00 AM CD T Respiratory Rate 18 04/10/2023 9:30 AM CDT Oxygen Saturation 97% 04/10/2023 9:30 AM CDT Inhaled Oxygen Concentration - - Weight 121.2 kg (267 lb 2 oz) 04/10/2023 9:00 AM CDT Height 175.3 cm (5' 9 ) 04/10/2023 9:00 AM CDT Body Mass Index 39.45 04/10/2023 9:00 AM CDT documented in this encounter Discharge Instructions * Attachments The following attachments cannot be sent through Care Everywhere. * High Blood Pressure Discharge Instructions (Slovak) documented in this encounter Medications at Time of Discharge amLODIPine (NORVASC) 5 MG tablet Take 1 tablet (5 mg total) by mouth daily. 30 tablet 1 04/10/2023 documented as of this encounter ED Notes * Annabel Mustafa RN - 04/10/2023 8:55 AM CDT Patient donates plasma a couple times a week. Recently he found out his blood pressure was running high. He claims that the diastolic reading was 114. At this time his blood pressure was being high and he is also feeling dizzy. He states that this has been going on all of March. Yesterday he saidhe stood up and saw black spots like he was going to pass out. He states he feels like he is going t o pass out at different times but hasn't in a long time. * Angel Navas MD - 04/10/2023 8:55 AM CDT eMERGENCY dEPARTMENT eNCOUnter CHIEF COMPLAINT Chief Complaint Patient presents with Dizziness Hypertension Follow Up HPI HPI Radha Roberts is a 42-year-old male who presents to the ER with a complaint of elevated blood pressure. Patient states he is recently identified that his blood pressures been elevated. He made an appointment with Dr. Delfin Tello is initial patient but is not to the beginning of May. The office told him that if he has symptoms to come to the emergency department. He has noticed some dizziness recently. No chest pain shortness of breath or other complaints. ALLERGIES Review of patient's allergies indicates: No Known Allergies CURRENT MEDICATIONS Current Outpatient Medications Medication Sig amLODIPine (NORVASC) 5 MG tablet Take 1 tablet (5 mg total) by mouth daily. PAST MEDICAL HISTORY Past Medical History: Diagnosis Date Bipolar disorder (CMS/HCC) SURGICAL HISTORY History reviewed. No pertinent surgical history. SOCIAL HISTORY Social History Socioeconomic History Marital status: Single Tobacco Use Smoking status: Every Day Types: Cigarettes Smokeless tobacco: Never Substance and Sexual Activity Alcohol use: No FAMILY HISTORY No family history on file. REVIEW OF SYSTEMS Review of Systems All other ROS negative unless noted above in HPI. PHYSICAL EXAM Physical Exam Filed Vitals: 04/10/23 0900 BP: (!) 157/109 Pulse: 88 Resp: 18 Temp: 97.2 ??F (36.2 ??C) TempSrc: Temporal SpO2: 93% Weight: 121.2 kg (267 lb 2 oz) Height: 1.753 m (5' 9 ) The patient is a well developed and well nourished adult male in no distress, alert and oriented. HEENT: PERRL, EOMI Throat without lesions, mucous membranes moist NECK: Supple without adenopathy or rigidity CHEST: Lungs clear and equal to auscultation Heart regular rate and rhythm without murmur EXT: No clubbing, cyanosis, edema NEURO: CN II-XII intact, no focal weakness EKG EKG on my read shows normal sinus rhythm without ischemic changes RADIOLOGY No orders to display LABS No results found for this visit on 04/10/23. ED MEDICATIONS Medications amLODIPine (NORVASC) tablet 5 mg (has no administration in time range) PROCEDURES Procedures CONSULTS: ED COURSE & MEDICAL DECISION MAKING MDM Amount and/or Complexity of Data Reviewed Tests in the medicine section of CPT??: reviewed Patient's blood pressure is elevated here consistently with a diastolic just over 100. He is asymptomatic at the moment. We will start him on amlodipine and because his appointment is more than 30 days I will give 1 refill. This will also allow him to double the dose if needed for elevated blood pressure. Recommend that he checks it once a day going forward return or follow-up if any problems. FINAL IMPRESSION SNOMED CT(R) 1. Hypertensive urgency HYPERTENSIVE URGENCY Julio César Tello MD [address] [place] [address] Keep your appointment, return to the emergency department if worse New Prescriptions AMLODIPINE (NORVASC) 5 MG TABLET Take 1 tablet (5 mg total) by mouth daily. Angel Navas MD 04/10/23 0914 documented in this encounter Plan of Treatment Not on file documented as of this encounter Procedures Procedure Name Priority Date/Time Associated Diagnosis Comments ECG 12-LEAD Routine 04/10/2023 8:59 AM CDT documented in this encounter Results * ECG 12 lead (04/10/2023 8:59 AM CDT) 04/10/2023 8:59 AM CDT Narrative [facility] - 04/10/2023 7:30 PM CDT ? [facility] ?[address] [place], [place] ??[address] ? Test Date: ?2023-04-10 Pat Name: ? RADHA ROBERTS ? Department: ?? 3 ? Room: ? EXAM 404 Gender: ? Male ? 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 Requested By: ANGEL NAVAS Order Number: [id number] ? Jamaal LOWE: ?? Natalya Theodore ? Measurements Intervals ?[place] ? Rate: ? 80 ? P: ?62 ND: ? 164 ?QRS: ?42 QRSD: ? 95 ? T: ?42 QT: ? 373 ? QTc: ?432 ? Interpretive Statements SINUS RHYTHM Procedure Note Natalya Theodore MD - 04/10/[address] [place] [address] Test Date: 2023-04-10 Pat Name: 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: : 1980 Requested By: ANGEL NAVAS Order Number: [id number] Reading MD: Natalya Theodore Measurements Intervals [place] Rate: 80 P: 62 ND: 164 QRS: 42 QRSD: 95 T: 42 QT: 373 QTc: 432 Interpretive Statements SINUS RHYTHM us Angel Navas MD ECG ORDERABLES Final Result [facility] [place] [facility] documented in this encounter Visit Diagnoses Diagnosis Hypertensive urgency- Primary Unspecified essential hypertension documented in this encounter Administered Medications Inactive Administered Medications - up to 3 most recent administrations Medication Order MAR Action Action Date Dose Rate Site amLODIPine (NORVASC) tablet 5 mg 5 mg, Oral, Once, 1 dose, On Sat04/10/23 at 0915 Given 04/10/2023 9:32 AM CDT 5 mg documented in this encounter Active and Recently Administered Medications Times are shown in CDT. Scheduled Medication Order 04/08/2023 04/09/2023 04/10/2023 amLODIPine (NORVASC) tablet 5 mg (COMPLETED) 5 mg, Oral, Once, 1 dose, On Sat04/10/23 at 0915 0932 (Given - Provid er: Danielle Lin RN) documented in this encounter Care Teams Natural Resources Extension Educator Relationship Specialty Start Date End Date Julio César Tello MD [address] [place] [address] PCP - General FAMILY PRACTICE 04/10/23 documented as of this encounter
--- OUTSIDE RECORDS SUMMARY | 2024-05-28 02:40 | XMS_ITS | Encounter Summary ---
Author Organization [facility] Address [address] [place] [address]. 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
--- OUTSIDE RECORDS SUMMARY | 2024-05-28 02:40 | XMS_ITS | Encounter Summary ---
Author Organization [facility] Address [address] [place] [address]. 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
--- OUTSIDE RECORDS SUMMARY | 2024-05-28 02:40 | XMS_ITS | Encounter Summary ---
Author Organization [facility] Address [address] [place] [address]. 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
--- OUTSIDE RECORDS SUMMARY | 2024-05-28 02:40 | XMS_ITS | Encounter Summary ---
Author Organization [facility] Address [address] [place] [address]. 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
--- OUTSIDE RECORDS SUMMARY | 2024-05-28 02:40 | XMS_ITS | Encounter Summary ---
Author Organization [facility] Address [address] [place] [address]. 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
--- OUTSIDE RECORDS SUMMARY | 2024-05-28 02:40 | XMS_ITS | Encounter Summary ---
Author Organization [facility] Address [address] [place] [address]. [place] [address] [place] [address] Care Team Providers Care Workforce Specialist Name Role Phone Tom Mckeon MD Primary Care Provider Reason for Visit * Reason Comments Psychiatric Problem Encounter Details Date Type Department Care Team (Late st Contact Info) Description 02/06/2019 7:30 PM CDT - 02/07/2019 1:25 AM CDT Emergency [place] [facility] [address] [facility] 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 Gender Identity Not on file Sexual Orientation Not on file documented as of this encounter Last Filed Vital Signs Vital Sign Reading Time Taken Comments Blood Pressure 136/92 02/06/2019 7:43 PM CDT Pulse 119 02/06/2019 7:43 PM CDT Temperature 36.8 ??C (98.3 ??F) 02/06/2019 7:43 PM CD T Respiratory Rate 18 02/06/2019 7:43 PM CDT Oxygen Saturation 100% 02/06/2019 7:43 PM CDT Inhaled Oxygen Concentration - - Weight 77.1 kg (170 lb) 02/06/2019 7:43 PM CDT Height 175.3 cm (5' 9 ) 02/06/2019 7:43 PM CDT Body Mass Index 25.1 02/06/2019 7:43 PM CDT documented in this encounter Discharge Instructions * Attachments The following attachments cannot be sent through Care Everywhere. * Bipolar Disorder Discharge Instructions (Bangladeshi) documented in this encounter Medications at Time of Discharge lamoTRIgine (LAMICTAL) 25 MG tablet Take 1 tablet (25 mg total) by mouth daily for 15 days. 15 tablet 02/07/2019 02/22/2019 trazodone 50 MG tablet Take 1 tablet (50 mg total) by mouth nightly at bedtime for 15 days. 15 tablet 02/07/2019 02/22/2019 documented as of this encounter ED Notes * Kay Conley RN - 02/06/2019 7:44 PM CDT PT ARRIVES WITH C/O FEELING MANIC . PT STATES WAS RELEASED FROM [facility] ON Saturday. PT STATES HAS BEEN IN [facility] FOR 2 YEARS THAT LAST SEVEN MONTHS IN [place]. PT STATES ON Saturday BEGAN FEELING MANIC. PT C/O NOT SLEEPING AND NOT EATING. PT STATES IS CURRENTLY HOMELESS AND HAS SPENT THE LAST 2 NIGHTS AT THE BUS STOP IN [place]. PT APPEARS CALM, DENIES ANY SUICIDAL OR HOMICIDAL IDEATIONS. * Bryant Cui DO - 02/06/2019 7:41 PM CDT Chief Complaint Chief Complaint Patient presents with ??? Psychiatric Problem History of Present Illness I, Nemo Sawant, acting as a scribe, am personally taking down the notes in the presence of Dr. Bryant Cui DO. Take no action on this note until reviewed and authenticated by the physician. Patient is a 38 year old male with a PMHx of bipolar disorder presenting to the ED seeking evaluation for a psychiatric problem onset x1 week ago. Patient states that he recently got out of [facility] and has not been on his medication for the past x3 months due to being in [facility]. He mentions that he was taking Lamictal, Trazodone, and an antidepressant which combined was helping his symptoms. Patient reports that he has been unable to focus and has not been sleeping. He notes that he has not beeneating or drinking due to his thoughts being jumbled . Patient mentions that he has had decreased urination. He reports feeling manic. Patient mentions that he has experienced these symptoms in the past, which usually lead to tactile hallucinations and he does not want it to get to that point, so he wants something to help him sleep. He notes that he has dealt with [facility] in the past and has felt like he got the help he needed there, so he plans to contact them as well to get help again. Patient denies fever, chills, nausea, vomiting, diarrhea, chest pain, shortness of breath, cough, rhinorrhea, sore throat, abdominal pain, trauma or injury to area of complaint, back or neck pain, headache, changes in vision, hearing, speech, or bowel habits. Patient denies any pertinent past medical history or taking any medication for pain relief. Patient is in otherwise baseline state of health and all other review of systems negative upon review. History provided by: Patient Medical History ALLERGIES: No Known Allergies MEDICATIONS: Prior to Admission medications Medication Sig Start Date End Date Taking? Authorizing Provider lamoTRIgine (LAMICTAL) 25 MG tablet Take 1 tablet (25 mg total) by mouth daily for 15 days. Yes Sj Calvin MD trazodone 50 MG tablet Take 1 tablet (50 mg total) by mouth nightly at bedtime for 15 days. Yes Sj Calvin MD PAST MEDICAL HISTORY: Past Medical History: Diagnosis Date ??? Bipolar disorder ([facility]) PAST SURGICAL HISTORY: History reviewed. No pertinent surgical history. FAMILY HISTORY: No family history on file. SOCIAL HISTORY: Social History Tobacco Use ??? Smoking status: Current Every Day Smoker Types: Cigarettes ??? Smokeless tobacco: Never Used Substance Use Topics ??? Alcohol use: No Frequency: Never ??? Drug use: Not on file Review of Systems Review of Systems Constitutional: Positive for appetite change (Not eating or drinking). HENT: Negative. Eyes: Negative. Respiratory: Negative. Gastrointestinal: Negative. Endocrine: Negative. Genitourinary: Negative. Musculoskeletal: Negative. Skin: Negative. Allergic/Immunologic: Negative. Neurological: Negative. Hematological: Negative. Psychiatric/Behavioral: Positive for sleep disturbance (Not sleeping). Patient reports he is feeling manic Physical Exam Filed Vitals: 02/06/19 1943 BP: (!) 136/92 Pulse: 119 Resp: 18 Temp: 98.3 ??F (36.8 ??C) TempSrc: Temporal SpO2: 100% Weight: 77.1 kg (170 lb) Height: 5' 9 (1.753 m) Physical Exam Constitutional: He is oriented to person, place, and time. He appears well- developed and well-nourished. HENT: Head: Normocephalic and atraumatic. Eyes: EOM are normal. Pupils are equal, round, and reactive to light. Right conjunctiva is injected(Mildly erythematous). Left conjunctiva is injected (Mildly erythematous). Neck: Normal range of motion. Neck supple. Cardiovascular: Normal rate, regular rhythm and normal heart sounds. Pulmonary/Chest: Effort normal and breath sounds normal. Abdominal: Soft. Bowel sounds are normal. Musculoskeletal: Normal range of motion. Neurological: He is alert and oriented to person, place, and time. Skin: Skin is warm and dry. Nursing note and vitals reviewed. Diagnostic Studies / Procedures ELECTROCARDIOGRAMS: No results found for this visit on 02/06/19. LABORATORY STUDIES: No results found for this visit on 02/06/19. IMAGING STUDIES No orders to display ED Course / Medical Decision Making Medications - No data to display Discharge Medication List as of 02/07/2019 1:19 AM START taking these medications Details lamoTRIgine (LAMICTAL) 25 MG tablet Take 1 tablet (25 mg total) by mouth daily for 15 days., Starting 02/07/2019, Until 02/22/2019, Eprescribe Class: Eprescribe Pharmacy: [facility] [address] [place] [address] (Ph #: [phone]) trazodone 50 MG tablet Take 1 tablet (50 mg total) by mouth nightly at bedtime for 15 days., Starting 02/07/2019, Until 02/22/2019, Eprescribe Class: Eprescribe Pharmacy: [facility] [address] [place] [address] (Ph #: [phone]) Tom Mckeon MD [address] [facility] [place] [address] In 3 days MDM Number of Diagnoses or Management Options Bipolar affective disorder, currently manic, moderate (CMS/HCC): established and worsening Risk of Complications, Morbidity, and/or Mortality Presenting problems: low Diagnostic procedures: minimal Management options: moderate Patient Progress Patient progress: improved ED Course as of Feb 15 706 Sat Feb 07, 2019 0056 RN reports that hospital policy requires patient to be discharged despite no safe place for him to go tonight other than the ER waiting room and no conclusion to contacting follow up resources for him. [GIG TENDER] ED Course User Index [GIG TENDER] Sj Calvin MD Clinical Impression Bipolar affective disorder, currently manic, moderate (CMS/HCC) (Primary) Nemo Sawant, 02/15/19, 07:06. Provider Attestation: I,BRYANT CUI DO attest that I supervised the patient care provided and have reviewed the documentation recorded by the scribe in conjunction with myself for the duration of our concurrent shift. Any documentation I have added that may be in conflict with that documented by the scribe should be considered the documentation of record. Disposition: Discharge Bryant Cui DO 02/15/197[address] documented in this encounter Plan of Treatment Not on file documented as of this encounter Visit Diagnoses Diagnosis Bipolar affective disorder, currently manic, moderate (CMS/HCC HHS/HCC)- Primary Bipolar I disorder, most recent episode (or current) manic, moderate documented in this encounter Administered Medications Inactive Administered Medications - up to 3 most recent administrations Medication Order MAR Action Action Date Dose Rate Site lamoTRIgine (LAMICTAL) tablet 25 mg 25 mg, Oral, Daily, First dose on Sat02/06/19 at 2000, Until Discontinued Given 02/06/2019 8:18 PM CDT 25 mg documented in this encounter Active and Recently Administered Medications Times are shown in CDT. Scheduled Medication Order 02/05/2019 02/06/2019 02/07/2019 lamoTRIgine (LAMICTAL) tablet 25 mg 25 mg, Oral, Daily, First dose on Sat02/06/19 at 2000, Until Discontinued 2017 (Given - Provider: Berhane Leiva RN) documented in this encounter Care Teams Workforce Specialist Relationship Specialty Start Date End Date Tom Mckeon MD [address] [place] [address] [place] [id number] PCP - General FAMILY PRACTICE 02/06/19 04/09/23 documented as of this encounter
--- OUTSIDE RECORDS SUMMARY | 2024-05-28 02:40 | XMS_ITS | Encounter Summary ---
Author Organization [facility] Address [address] [place] [address]. [place], [place] [address] [place] [address] Care Team Providers Care Civil Drafter Name Role Phone Julio César Tello MD Primary Care Provider [phone] Reason for Referral * Imaging (Emergency) - New Request Specialty Diagnoses / Procedures Referred By Veronique babcock Referred To Contact RADIOLOGY Procedures USV CONG DUPLEX UP EXT LT Sathish Gay DO [address] [place] [address] Phone: tel: fax: Referral ID Status Reason Start Date Expiration Date V isits Requested Visits Authorized [id number] New Request 10/24/2023 10/23/2024 1 1 Reason for Visit * Reason Comments Arm Pain Encounter Details Date Type Department Care Team (Late st Contact Info) Description 10/24/2023 2:39 PM CDT - 10/24/2023 4:09 PM CDT Emergency [facility] [address] [place] [address] [place] [address] Sathish Gay DO [address] [place] [address] Arm Pain Discharge Disposition: Home or Self Care (Routine [...] on file 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 * Cellulitis (Skin Infection) Discharge Instructions, Adult (Czech) documented in this encounter Medications at Time of Discharge amLODIPine (NORVASC) 5 MG tablet Take 1 tablet (5 mg total) by mouth daily. 30 tablet 1 04/10/2023 cephALEXin (KEFLEX) 500 MG capsule Take 1 capsule (500 mg total) by mouth 4 (four) times daily for 5 days. 20 capsule 10/24/2023 10/29/2023 documented as of this encounter ED Notes * Sathish Gay DO - 10/24/2023 2:57 PM CDT Chief Complaint Chief Complaint Patient presents with Arm Pain History of Present Illness Patient is a 43 yo M here for L volar forearm pain rash and swelling for 6 hours Patient donated plasma 2 days ago, they had difficulty with the IV He was told to go to the ER for any complications He denies falls or injuries No hx of LUE surgeries No fevers or chills His left arm feels 3/10 pain and swelling, 2x2 inch mild blanching erythema Patient stable Arm Pain Associated symptoms: rash Medical History ALLERGIES: Review of patient's allergies indicates: No Known Allergies MEDICATIONS: Prior to Admission medications Medication Sig Start Date End Date Taking? Authorizing Provider cephALEXin (KEFLEX) 500 MG capsule Take 1 capsule (500 mg total) by mouth 4 (four) times daily for 5 days. 10/24/23 10/29/23 Yes Sathish Gay, amLODIPine (NORVASC) 5 MG tablet Take 1 tablet (5 mg total) by mouth daily. 04/10/23 Angel Villarreal MD PAST MEDICAL HISTORY: Past Medical History: Diagnosis Date Bipolar disorder ([facility]) Hypertension PAST SURGICAL HISTORY: History reviewed. No pertinent surgical history. FAMILY HISTORY: No family history on file. SOCIAL HISTORY: Social History Tobacco Use Smoking status: Every Day Types: Cigarettes Smokeless tobacco: Never Substance Use Topics Alcohol use: No Review of Systems Review of Systems Constitutional: Negative. HENT: Negative. Eyes: Negative. Respiratory: Negative. Cardiovascular: Negative. Gastrointestinal: Negative. Endocrine: Negative. Genitourinary: Negative. Musculoskeletal: L arm pain and swelling Skin: Positive for rash. Allergic/Immunologic: Negative. Neurological: Negative. Hematological: Negative. Psychiatric/Behavioral: Negative. Physical Exam Filed Vitals: 10/24/23 1444 10/24/23 1545 BP: 134/89 (!) 139/95 Pulse: 94 90 Resp: 16 Temp: 98.4 ??F (36.9 ??C) TempSrc: Temporal SpO2: 99% 98% Weight: 113.4 kg (250 lb) Height: 1.753 m (5' 9 ) Physical Exam Vitals and nursing note reviewed. Constitutional: Appearance: Normal appearance. He is obese. HENT: Head: Normocephalic and atraumatic. Right Ear: External ear normal. Left Ear: External ear normal. Nose: Nose normal. Mouth/Throat: Mouth: Mucous membranes are moist. Pharynx: Oropharynx is clear. Eyes: Conjunctiva/sclera: Conjunctivae normal. Pupils: Pupils are equal, round, and reactive to light. Cardiovascular: Rate and Rhythm: Normal rate and regular rhythm. Pulses: Normal pulses. Heart sounds: Normal heart sounds. Pulmonary: Effort: Pulmonary effort is normal. Breath sounds: Normal breath sounds. No wheezing or rales. Abdominal: Palpations: Abdomen is soft. Tenderness: There is no abdominal tenderness. There is no guarding. Genitourinary: Comments: deferred Musculoskeletal: General: Normal range of motion. Cervical back: Normal range of motion and neck supple. Skin: General: Skin is warm and dry. Capillary Refill: Capillary refill takes less than 2 seconds. Comments: L forearm volar rash 2 x 2 inches with erythema, it is blanchable, negative nikolsky sign, no discharge, no bleeding soft compartments, no crepitus, mildly ttp Neurological: General: No focal deficit present. Mental Status: He is alert and oriented to person, place, and time. Psychiatric: Mood and Affect: Mood normal. Behavior: Behavior normal. Diagnostic Studies / Procedures ELECTROCARDIOGRAMS: No results found for this visit on 10/24/23. LABORATORY STUDIES: Results for orders placed or performed during the hospital encounter of 10/24/23 CBC W/DIFF AUTOMATED Result Value Ref Range WBC 10.23 4.00 - 10.80 x10'3/uL RBC 5.38 4.50 - 6.10 x10'6/uL HGB 16.5 13.0 - 18.0 G/DL HCT 48.3 37.0 - 52.0 % MCV 89.8 78.0 - 100.0 FL MCH 30.7 27.0 - 31.0 PG MCHC 34.2 33.0 - 36.0 G/DL RDW 13.4 11.5 - 14.5 % PLT 210 150 - 350 x10'3/uL MPV 11.6 (H) 7.4 - 10.4 FL CBC COMMENT NORMAL REFERENCE RANGE NOT ESTABLISHED FOR THE PROPORTIONAL LEUKOCYTE DIFFERENTIAL. NEUTROPHILS 67.8 % LYMPHOCYTES 21.5 % MONOCYTES 6.0 % EOSINOPHILS 4.0 % BASOPHILS 0.6 % IMMATURE GRANS 0.1 % NRBC 0.0 % ABS. NEUTROPHILS 6.94 1.60 - 8.30 x10'3/uL ABS. LYMPHOCYTES 2.20 0.80 - 4.70 x10'3/uL ABS. MONOCYTES 0.61 0.00 - 1.50 x10'3/uL ABS. EOSINOPHILS 0.41 (H) 0.00 - 0.40 x10'3/uL ABS. BASOPHILS 0.06 0.00 - 0.20 x10'3/uL ABS. IMMATURE GRANULOCYTES 0.01 0.00 - 0.03 x10'3/uL ABS. NUCLEATED RBC'S 0.00 0.00 x10'3/uL COMPREHENSIVE METABOLIC PANEL Result Value Ref Range SODIUM S/P/B 139 136 - 145 MMOL/L POTASSIUM S/P/B 3.5 3.5 - 5.1 MMOL/L CHLORIDE S/P/B 105 98 - 107 MMOL/L CO2 25.7 21.0 - 32.0 MMOL/L GLUCOSE 83 70 - 99 MG/DL BUN 5 (L) 6 - 24 MG/DL CREATININE S/P/B 0.99 0.70 - 1.30 MG/DL CALCIUM S/P/B 8.1 (L) 8.4 - 10.5 MG/DL BILIRUBIN TOTAL S/P/B 0.4 0.2 - 1.0 MG/DL ALKALINE PHOSPHATASE S/P/B 71 45 - 115 U/L AST 14 (L) 15 - 37 U/L ALT 31 16 - 63 U/L TOTAL PROTEIN S/P/B 6.1 (L) 6.4 - 8.2 G/DL ALBUMIN S/P/B 3.3 (L) 3.4 - 5.0 G/DL ANION GAP 8.3 5.0 - 15.0 MMOL/L OSMOLALITY (CALC) 284 MOSM/KG GFR ESTIMATE >90 >89 ML/MIN/1.73 M2 GFR NOTES GFR REFERENCES: LACTIC ACID W REFLEX (SEPSIS) Result Value Ref Range LACTIC ACID VENOUS 0.8 0.4 - 2.0 MMOL/L IMAGING STUDIES USV CONG DUPLEX UP EXT LT Final Result by User, [id number] (10/23 0050) EXAMINATION: USV CONG DUPLEX UP EXT LT EXAM DATE: 10/24/2023 3:11 PM CLINICAL HISTORY: Left forearm swelling and rash after blood donation. COMPARISON: None. TECHNIQUE: Sonographic evaluation of the visualized LEFT upper extremity deep venous system was performed to assess grayscale, color Doppler, and spectral waveform characteristics. FINDINGS: The visualized LEFT internal jugular vein, subclavian vein, axillary vein, brachial vein, basilic, and cephalic vein demonstrate appropriate compressibility and grayscale images, appropriate color Doppler flow, and appropriate response to augmentation on spectral waveform analysis. The visualized LEFT radial and ulnar veins demonstrate appropriate color Doppler flow. There is induration of the subcutaneous fat in the area of concern of the left forearm, that is nonspecific, and could reflect edema versus cellulitis. The RIGHT internal jugular vein demonstrate appropriate color Doppler flow with appropriate phasicity on spectral waveform analysis. IMPRESSION: 1. No sonographic evidence is seen to suggest deep venous thrombosis in the visualized LEFT upper extremity. 2. Induration of the subcutaneous fat in the area of concern in the left forearm that is nonspecific, and could reflect edema versus cellulitis. Referred By: Interpreted By: Spencer Pride DO, 10/24/2023 3:43 PM ED Course / Medical Decision Making Medical Decision Making WDX: Cellulitis LUE DDX: I considered sepsis, DVT, FB but these not found Keflex for home Strict return precautions given ED Course as of 10/24/232035 Sade October 24, 2023 1507 Pending US results for disposition [RS] ED Course User Index [RS] Sathish Gay DO Clinical Impression Cellulitis of left upper extremity (Primary) Disposition: Discharge Sathish Gay DO 10/24/232036 * Yenifer Jacome RN - 10/24/2023 2:41 PM CDT Pt here with pain, swelling and redness to left forearm. Pt reports he donated plasma two days ago and the needle had to be adjusted . Pt reports onset symptoms this morning. documented in this encounter Plan of Treatment Not on file documented as of this encounter Procedures Procedure Name Priority Date/Time Associated Diagnosis Comments USV CONG DUPLEX UP EXT LT STAT 10/24/2023 3:48 PM CDT LACTIC ACID W REFLEX (SEPSIS) STAT 10/24/2023 3:07 PM CDT COMPREHENSIVE METABOLIC PANEL STAT 10/24/2023 3:07 PM CDT CBC W/DIFF AUTOMATED STAT 10/24/2023 3:07 PM CDT documented in this encounter Results * USV CONG DUPLEX UP EXT LT (10/24/2023 3:48 PM CDT) Anatomical Region Laterality Modality Extremity Ultrasound 10/24/2023 3:43 PM CDT Impressions 10/24/2023 3:46 PM CDT IMPRESSION: 1. ??No sonographic evidence is seen to suggest deep venous thrombosis in the visualized LEFT upper extremity. 2. ??Induration of the subcutaneous fat in the area of concern in the left forearm that is nonspecific, and could reflect edema versus cellulitis. Referred By: ?? Interpreted By: Spencer Pride DO, 10/24/2023 3:43 PM Narrative 10/24/2023 3:46 PM CDT EXAMINATION: USV CONG DUPLEX UP EXT LT EXAM DATE: 10/24/2023 3:11 PM CLINICAL HISTORY: Left forearm swelling and rash after blood donation. COMPARISON: None. TECHNIQUE: Sonographic evaluation of the visualized LEFT upper extremity deep venous system was performed to assess grayscale, color Doppler, and spectral waveform characteristics. FINDINGS: The visualized LEFT internal jugular vein, subclavian vein, axillary vein, brachial vein, basilic, and cephalic vein demonstrate appropriate compressibility and grayscale images, appropriate color Doppler flow, and appropriate response to augmentation on spectral waveform analysis. ??The visualized LEFT radial and ulnar veins demonstrate appropriate color Doppler flow. ??There is induration of the subcutaneous fat in the area of concern of the left forearm, that is nonspecific, and could reflect edema versus cellulitis. The RIGHT internal jugular vein demonstrate appropriate color Doppler flow with appropriate phasicity on spectral waveform analysis. Procedure Note Spencer Pride DO - 10/24/2023 EXAMINATION: USV CONG DUPLEX UP EXT LT EXAM DATE: 10/24/2023 3:11 PM CLINICAL HISTORY: Left forearm swelling and rash after blood donation. COMPARISON: None. TECHNIQUE: Sonographic evaluation of the visualized LEFT upper extremitydeep venous system was performed to assess grayscale, color Doppler, andspectral waveform characteristics. FINDINGS: The visualized LEFT internal jugular vein, subclavian vein, axillary vein,brachial vein, basilic, and cephalic vein demonstrate appropriatecompressibility and grayscale images, appropriate color Doppler flow, andappropriate response to augmentation on spectral waveform analysis. Thevisualized LEFT radial and ulnar veins demonstrate appropriate colorDoppler flow. There is induration of the subcutaneous fat in the area ofconcern of the left forearm, that is nonspecific, and could reflect edemaversus cellulitis. The RIGHT internal jugular vein demonstrate appropriate color Doppler flowwith appropriate phasicity on spectral waveform analysis. IMPRESSION: 1. No sonographic evidence is seen to suggest deep venous thrombosis inthe visualized LEFT upper extremity. 2. Induration of the subcutaneous fat in the area of concern in the leftforearm that is nonspecific, and could reflect edema versus cellulitis. Referred By: Interpreted By: Spencer Pride DO, 10/24/2023 3:43 PM us Sathish Gay DO VASC Final Result * LACTIC ACID W REFLEX (SEPSIS) (10/24/2023 3:07 PM CDT) LACTIC ACID VENOUS 0.8 0.4 - 2.0 MMOL/L 10/24/2023 3:33 PM CDT [facility] 10/24/2023 3:07 PM CDT us Sathish Gay DO LABORATORY Final Result [facility] [place] [address], * (ABNORMAL) COMPREHENSIVE METABOLIC PANEL (10/24/2023 3:07 PM CDT) SODIUM S/P/B 139 136 - 145 MMOL/L 10/24/2023 3:28 PM CDT [facility] POTASSIUM S/P/B 3.5 3.5 - 5.1 MMOL/L 10/24/2023 3:28 PM CDT [facility] CHLORIDE S/P/B 105 98 - 107 MMOL/L 10/24/2023 3:28 PM CDT [facility] CO2 25.7 21.0 - 32.0 MMOL/L 10/24/2023 3:28 PM T [facility] GLUCOSE 83 70 - 99 MG/DL 10/24/2023 3:28 PM [facility] Comment: FASTING GLUCOSE 100 TO 125 MG/DL IS CONSISTENT WITH IMPAIRED FASTING GLUCOSE. FASTING GLUCOSE >125 MG/DL IS CONSISTENT WITH DIABETES. RANDOM GLUCOSE >200 MG/DL WITH HYPERGLYCEMIC SYMPTOMS IS CONSISTENT WITH DIABETES. PER ADA GUIDELINES BUN 5(L) 6 - 24 MG/DL 10/24/2023 3:28 PM T [facility] CREATININE S/P/B 0.99 0.70 - 1.30 MG/DL 10/24/2023 3:28 PM T [facility] CALCIUM S/P/B 8.1(L) 8.4 - 10.5 MG/DL 10/24/2023 3:28 PM [facility] BILIRUBIN TOTAL S/P/B 0.4 0.2 - 1.0 MG/DL 10/24/2023 3:28 PM T [facility] Comment: THIS ASSAY IS NOT RECOMMENDED FOR PATIENTS UNDERGOING TREATMENT WITH ELTROMBOPAG DUE TO THE POTENTIAL FOR FALSELY ELEVATED RESULTS. ALKALINE PHOSPHATASE S/P/B 71 45 - 115 U/L 10/24/2023 3:28 PM T [facility] AST 14(L) 15 - 37 U/L 10/24/2023 3:28 PM [facility] ALT 31 16 - 63 U/L 10/24/2023 3:28 PM T [facility] TOTAL PROTEIN S/P/B 6.1(L) 6.4 - 8.2 G/DL 10/24/2023 3:28 PM [facility] ALBUMIN S/P/B 3.3(L) 3.4 - 5.0 G/DL 10/24/2023 3:28 PM [facility] ANION GAP 8.3 5.0 - 15.0 MMOL/L 10/24/2023 3:28 PM T [facility] OSMOLALITY (CALC) 284 MOSM/KG 05/16/2 024 3:28 PM CDT [facility] Comment:REFERENCE RANGE NOT ESTABLISHED GFR ESTIMATE >90 >89 ML/MIN/1. 73 M2 10/24/2023 3:28 PM CDT [facility] GFR NOTES GFR REFERENCE S: 10/24/2023 3:28 PM CDT [facility] Comment: THE ESTIMATED GFR IS CALCULATED USING THE 2020 CKD-EPI EQUATION. THE FOLLOWING CATEGORIES FOR GRADING RENAL FUNCTION ARE RECOMMENDED BY THE INTERNATIONAL SOCIETY OF NEPHROLOGY (KDIGO 2012 CLINICAL PRACTICE GUIDELINE). G1,NORMAL OR HIGH: >89 ml/min/1.73 m2 G2,MILDLY DECREASED: 60-89 ml/min/1.73 m2 G3A,MILDLY TO MODERATELY DECREASED: 45-59 ml/min/1.73 m2 G3B,MODERATELY TO SEVERELY DECREASED: 30-44 ml/min/1.73 m2 G4,SEVERELY DECREASED: 15-29 ml/min/1.73 m2 G5,KIDNEY FAILURE: <15 ml/min/1.73 m2 10/24/2023 3:07 PM CDT Sathish Gay DO LABORATORY Final Result [facility] [address] [place] [address], * (ABNORMAL) CBC W/DIFF AUTOMATED (10/24/2023 3:07 PM CDT) WBC 10.23 4.00 - 10.80 x10'3/uL 10/24/2023 3:14 PM CDT [facility] RBC 5.38 4.50 - 6.10 x10'6/uL 10/24/2023 3:14 PM CDT [facility] HGB 16.5 13.0 - 18.0 G/DL 10/24/2023 3:14 PM CDT [facility] HCT 48.3 37.0 - 52.0 % 10/24/2023 3:14 PM CDT [facility] MCV 89.8 78.0 - 100.0 FL 10/24/2023 3:14 PM CDT [facility] MCH 30.7 27.0 - 31.0 PG 10/24/2023 3:14 PM CDT [facility] MCHC 34.2 33.0 - 36.0 G/DL 10/24/2023 3:14 PM CDT [facility] RDW 13.4 11.5 - 14.5 % 10/24/2023 3:14 PM CDT [facility] PLT 210 150 - 350 x10'3/uL 10/24/2023 3:14 PM CDT [facility] MPV 11.6(H) 7.4 - 10.4 FL 10/24/2023 3:14 PM CDT [facility] CBC COMMENT NORMAL REFERENCE RANGE NOT ESTABLISHED FOR THE PROPORTIONAL LEUKOCYTE DIFFERENTIAL. 10/24/2023 3:14 PM CDT [facility] NEUTROPHILS % 67.8 % 10/24/2023 3:14 PM CDT [facility] LYMPHOCYTES % 21.5 % 10/24/2023 3:14 PM CDT [facility] MONOCYTES % 6.0 % 10/24/2023 3:14 PM CDT [facility] EOSINOPHILS % 4.0 % 10/24/2023 3:14 PM CDT [facility] BASOPHILS % 0.6 % 10/24/2023 3:14 PM CDT [facility] IMMATURE GRANS % 0.1 % 10/24/19 3:14 PM CDT [facility] NRBC 0.0 % 10/24/2023 3:14 PM CDT [facility] ABS. NEUTROPHILS 6.94 1.60 - 8.30 x10'3/uL 10/24/2023 3:14 PM CDT [facility] ABS. LYMPHOCYTES 2.20 0.80 - 4.70 x10'3/uL 10/24/2023 3:14 PM CDT [facility] ABS. MONOCYTES 0.61 0.00 - 1.50 x10'3/uL 10/24/2023 3:14 PM CDT [facility] ABS. EOSINOPHILS 0.41(H) 0.00 - 0.40 x10'3/uL 10/24/2023 3:14 PM CDT [facility] ABS. BASOPHILS 0.06 0.00 - 0.20 x10'3/uL 10/24/2023 3:14 PM CDT [facility] ABS. IMMATURE GRANULOCYTES 0.01 0.00 - 0.03 x10'3/uL 10/24/2023 3:14 PM CDT [facility] ABS. NUCLEATED RBC'S 0.00 0.00 x10'3/uL 10/24/2023 3:14 PM CDT [facility] 10/24/2023 3:07 PM CDT Sathish Gay DO LABORATORY Final Result [facility] [address] [phone] documented in this encounter Visit Diagnoses Diagnosis Cellulitis of left upper extremity- Primary Cellulitis and abscess of upper arm and forearm documented in this encounter Care Teams Civil Drafter Relationship Specialty Start Date End Date Julio César Tello MD [address] [place] [phone] PCP - General FAMILY PRACTICE 04/10/23 documented as of this encounter
--- OUTSIDE RECORDS SUMMARY | 2024-05-28 02:40 | XMS_ITS | Encounter Summary ---
Author Organization [facility] Address [address] [place] [address]. [place] [address] [place] [address] Care Team Providers Care Outreach Educator Name Role Phone Julio César Tello MD Primary Care Provider [phone] Encounter Details Date Type Department Care Team (Late st Contact Info) Description 01/15/2024 10:19 AM CDT - 01/15/2024 11:59 PM CDT Hospital Encounter 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 30 tablet 1 04/10/2023 documented as of this encounter Plan of Treatment Not on file documented as of this encounter Procedures Procedure Name Priority Date/Time Associated Diagnosis Comments XR CHEST PA+LAT Routine 01/15/2024 10:33 AM CDT Chronic cough documented in this encounter Results * XR CHEST PA+LAT (01/15/2024 10:33 AM CDT) Anatomical Region Laterality Modality Chest Radiographic Mariajose ging 01/15/2024 10:4 1 AM CDT Impressions 01/15/2024 11:44 AM CDT IMPRESSION: No acute radiographic evidence of chest disease. Ordered By: ANNABEL CORDOBA Interpreted By: Marita Wu MD, 01/15/2024 10:41 AM Narrative 01/15/2024 11:44 AM CDT Examination: XR CHEST PA+LAT Clinical history: Chronic cough for one year. Worsening over the past 3 days. Exam time: 01/15/2024 10:25 AM Comparison: 11/22/2015, 03/18/2014 Technique: PA and lateral views of the chest were obtained. Findings: The cardiomediastinal silhouette appears unremarkable and the heart size is within normal parameters. The pulmonary vessels are within normal limits. No parenchymal consolidations are identified. There are no pleural effusions. There is no pneumothorax. No acute osseous abnormality is identified. Procedure Note Anthony Galvan MD - 01/15/2024 Examination: XR CHEST PA+LAT Clinical history: Chronic cough for one year. Worsening over the past 3days. Exam time: 01/15/2024 10:25 AM Comparison: 11/22/2015, 03/18/2014 Technique: PA and lateral views of the chest were obtained. Findings: The cardiomediastinal silhouette appears unremarkable and the heart sizeis within normal parameters. The pulmonary vessels are within normallimits. No parenchymal consolidations are identified. There are no pleuraleffusions. There is no pneumothorax. No acute osseous abnormality isidentified. IMPRESSION: No acute radiographic evidence of chest disease. Ordered By: ANNABEL CORDOBA Interpreted By: Marita Wu MD, 01/15/2024 10:41 AM us Annabel L Glide PA GENERAL IMAGING Final Result documented in this encounter Visit Diagnoses Diagnosis Chronic cough Cough documented in this encounter Care Teams Outreach Educator Relationship Specialty Start Date End Date Julio César Tello MD [address] [place] [phone] PCP - General FAMILY PRACTICE 04/10/23 documented as of this encounter
--- OUTSIDE RECORDS SUMMARY | 2024-05-28 02:40 | XMS_ITS | Encounter Summary ---
Author Organization [facility] Address [address] [place] [address]. 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
--- OUTSIDE RECORDS SUMMARY | 2024-05-28 02:40 | XMS_ITS | Encounter Summary ---
Author Organization [facility] Address [address] [place] [address]. 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
--- OUTSIDE RECORDS SUMMARY | 2024-05-28 02:40 | XMS_ITS | Encounter Summary ---
Author Organization [facility] Address [address] [place] [address]. [place], [place] [address] [place] [address] Care Team Providers Care Licensed Professional Counselor Name Role Phone Unavailable Primary Care Provider Unavailabl e Encounter Details Date Type Department Care Team (Late st Contact Info) Description 12/02/1997 Abstract [facility] [address] [place] [address] , Generic Conversion, Social History Tobacco Use Types Packs/Day Years Used Date Smoking Tobacco: Never Assessed Sex and Gender Information Value Date Recorded Sex Assigned at Not on file Legal Sex Male 5:59 PM ICU TECH Gender Identity Not on file Sexual Orientation Not on file documented as of this encounter Plan of Treatment Not on file documented as of this encounter Visit Diagnoses Not on filedocumented in this encounter
--- OUTSIDE RECORDS SUMMARY | 2024-05-28 02:40 | XMS_ITS | Encounter Summary ---
Author Organization [facility] Address [address] [place] [address]. 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
--- OUTSIDE RECORDS SUMMARY | 2024-05-28 02:40 | XMS_ITS | Encounter Summary ---
Author Organization [facility] Address [address] [place] [address]. 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
--- OUTSIDE RECORDS SUMMARY | 2024-05-28 02:40 | XMS_ITS | Encounter Summary ---
Author Organization [facility] Address [address] [place] [address]. [place] [address] [place] [address] Care Team Providers Care Emergency Room Technician Name Role Phone Unavailable Primary Care Provider Unavailabl e Encounter Details Date Type Department Care Team (Late st Contact Info) Description 11/22/2015 Abstract [facility] [address] 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
--- OUTSIDE RECORDS SUMMARY | 2024-05-28 02:40 | XMS_ITS | Encounter Summary ---
Author Organization [facility] Address [address] [place] [address]. 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
--- OUTSIDE RECORDS SUMMARY | 2024-05-28 02:40 | XMS_ITS | Encounter Summary ---
Author Organization [facility] Address [address] [place] [address]. 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
--- OUTSIDE RECORDS SUMMARY | 2024-05-28 03:19 | XMS_ITS | Encounter Summary ---
Author Organization [facility] Address [address] [place] [address]. 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
--- OUTSIDE RECORDS SUMMARY | 2024-05-28 03:19 | XMS_ITS | Encounter Summary ---
Author Organization [facility] Address [address] [place] [address]. [place], [place] [address] [place] [address] Care Team Providers Care Ceramist Name Role Phone Tom Mckeon MD Primary Care Provider [phone] Reason for Referral * Imaging (Emergency) - Closed Specialty Diagnoses / Procedures Referred By Contzoey t Referred To Contact RADIOLOGY Procedures CT HEAD WO CON Angel Villarreal MD Phone: tel: fax: Referral ID Status Reason Start Date Expiration Date Visits Re quested Visits Authorized [id number] Closed 03/18/2019 04/18/2020 1 1 Reason for Visit * Reason Comments Dizziness Encounter Details Date Type Department Care Team (Late st Contact Info) Description 03/18/2019 7:02 PM CDT - 03/18/2019 9:06 PM CDT Emergency [facility] [address] [place] [address] [place] [address] Angel Villarreal MD [address] [place] [id number] Dizziness Discharge Disposition: Home or Self Care [...] on file 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 Bipolar disorder ([facility]) SURGICAL HISTORY History reviewed. No pertinent surgical [...] file Gets together: Not on file Attends pentecostalism service: Not on file Active member of [...] HEAD WO CON Final Result by User, [email or web address] (03/18 2016) CLINICAL INDICATION: 38-year-old with dizziness [...] POSITIONAL VERTIGO Julio César Tello MD [address] [place] [address] Schedule an appointment as soon as [...] Refills: 0 Class: Eprescribe Pharmacy: [facility] [address] [place] [address] (Ph #: [phone]) ondansetron 4 MG disintegrating tablet Take 1 tablet (4 mg total) by mouth every 6 (six) hours as needed. Qty: 10 tablet, Refills: 0 Class: Eprescribe Pharmacy: [facility] [address] [place] [address] (Ph #: [phone]) Julio César Tello MD [address] [facility] [phone] Schedule an appointment as soon as possible [...] RN) documented in this encounter Care Teams Ceramist Relationship Specialty Start Date End Date Tom Mckeon MD [facility] [facility] [place] [address] PCP - General FAMILY PRACTICE 02/06/19 04/09/23 documented as of this encounter
--- OUTSIDE RECORDS SUMMARY | 2024-05-28 03:19 | XMS_ITS | Encounter Summary ---
Author Organization [facility] Address [address] [place] [address]. 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
--- OUTSIDE RECORDS SUMMARY | 2024-05-28 03:19 | XMS_ITS | Encounter Summary ---
Author Organization [facility] Address [address] [place] [address]. [place] [address] [place] [address] Care Team Providers Care Tensioning Machine Operator Name Role Phone Julio César Tello MD Primary Care Provider [phone] Encounter Details Date Type Department Care Team (Late st Contact Info) Description 01/15/2024 10:19 AM CDT - 01/15/2024 11:59 PM [address] Hospital Encounter 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
--- OUTSIDE RECORDS SUMMARY | 2024-05-28 03:19 | XMS_ITS | Encounter Summary ---
Author Organization [facility] Address [address] [place] [address]. 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
--- OUTSIDE RECORDS SUMMARY | 2024-05-28 03:19 | XMS_ITS | Encounter Summary ---
Author Organization [facility] Address [address] [place] [address]. 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
--- OUTSIDE RECORDS SUMMARY | 2024-05-28 03:19 | XMS_ITS | Encounter Summary ---
Author Organization [facility] Address [address] [place] [address]. [place], [place] [address] [place] [address] Care Team Providers Care Interventional Physiatrist Name Role Phone Unavailable Primary Care Provider Unavailabl e Encounter Details Date Type Department Care Team (Late st Contact Info) Description 06/11/2012 Abstract [facility] [address] [facility] [address] Social History Tobacco Use Types Packs/Day Years Used Date Smoking Tobacco: Never Assessed Sex and Gender Information Value Date Recorded Sex Assigned at Not on file Legal Sex Male 5:59 PM POLICE PATROL OFFICER Gender Identity Not on file Sexual Orientation Not on file documented as of this encounter Plan of Treatment Not on file documented as of this encounter Visit Diagnoses Diagnosis Disturbance of conduct Unspecified disturbance of conduct documented in this encounter
--- OUTSIDE RECORDS SUMMARY | 2024-05-28 03:19 | XMS_ITS | Encounter Summary ---
Author Organization [facility] Address [address] [place] [address]. 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
--- OUTSIDE RECORDS SUMMARY | 2024-05-28 03:19 | XMS_ITS | Encounter Summary ---
Author Organization [facility] Address [address] [place] [address]. [place], [place] [address] [place] [address] Care Team Providers Care Odd Piece Checker Name Role Phone Unavailable Primary Care Provider Unavailabl e Encounter Details Date Type Department Care Team (Late st Contact Info) Description 08/16/1997 Abstract [facility] [address] [place] [address] , Generic Conversion, Social History Tobacco Use Types Packs/Day Years Used Date Smoking Tobacco: Never Assessed Sex and Gender Information Value Date Recorded Sex Assigned at Not on file Legal Sex Male 5:59 PM DIRECTOR COMPLIANCE Gender Identity Not on file Sexual Orientation Not on file documented as of this encounter Plan of Treatment Not on file documented as of this encounter Visit Diagnoses Not on filedocumented in this encounter
--- OUTSIDE RECORDS SUMMARY | 2024-05-28 03:19 | XMS_ITS | Encounter Summary ---
Author Organization [facility] Address [address] [place] [address]. [place] [address] [place] [address] Care Team Providers Care Cutter Hot Knife Name Role Phone Unavailable Primary Care Provider Unavailabl e Encounter Details Date Type Department Care Team (Late st Contact Info) Description 11/11/2015 Abstract [facility] [address] [facility] [place] [address] Aiden Waldron, DO [address] [place] [address] Social History Tobacco Use Types Packs/Day Years Used Date Smoking Tobacco: Never Assessed Sex and Gender Information Value Date Recorded Sex Assigned at Not on file Legal Sex Male 5:59 PM OFFC SPEC Gender Identity Not on file Sexual Orientation Not on file documented as of this encounter Plan of Treatment Not on file documented as of this encounter Visit Diagnoses Diagnosis Dehydration documented in this encounter
--- OUTSIDE RECORDS SUMMARY | 2024-05-28 03:19 | XMS_ITS | Encounter Summary ---
Author Organization [facility] Address [address] [place] [address]. 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
--- OUTSIDE RECORDS SUMMARY | 2024-05-28 03:19 | XMS_ITS | Encounter Summary ---
Author Organization [facility] Address [address] [place] [address]. [place], [place] [address] [place] [address] Care Team Providers Care Anesthesia Technician Name Role Phone Julio César Tello MD Primary Care Provider [phone] Reason for Referral * Imaging (Emergency) - New Request Specialty Diagnoses / Procedures Referred By Veronique babcock Referred To Contact RADIOLOGY Procedures USV CONG DUPLEX UP EXT LT Sathish Gay DO [address] [place] [address] Phone: tel: fax: Referral ID Status Reason Start Date Expiration Date V isits Requested Visits Authorized [id number] New Request 10/24/2023 10/23/2024 1 1 Reason for Visit * Reason Comments Arm Pain Encounter Details Date Type Department Care Team (Late st Contact Info) Description 10/24/2023 2:39 PM CDT - 10/24/2023 4:09 PM CDT Emergency [facility] [address] [place] [address] [place] [address] Sathish Gay DO [address] [place] [address] Arm Pain Discharge Disposition: Home or [...] on file 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 No [...] UP EXT LT Final Result by User, [id number] (10/23 9604) EXAMINATION: USV CONG DUPLEX UP EXT LT [...] - 2.0 MMOL/L 10/24/2023 3:33 PM CDT [facility] 10/24/2023 3:07 PM CDT us Sathish Gay DO LABORATORY Final Result [facility] [place] [address], * (ABNORMAL) COMPREHENSIVE METABOLIC PANEL (10/24/2023 3:07 PM CDT) SODIUM S/P/B 139 136 - 145 MMOL/L 10/24/2023 3:28 PM CDT [facility] POTASSIUM S/P/B 3.5 3.5 - 5.1 MMOL/L 10/24/2023 3:28 PM CDT [facility] CHLORIDE S/P/B 105 98 - 107 MMOL/L 10/24/2023 3:28 PM CDT [facility] CO2 25.7 21.0 - 32.0 MMOL/L 10/24/2023 3:28 PM T [facility] GLUCOSE 83 70 - 99 MG/DL 10/24/2023 3:28 PM [facility] Comment: FASTING GLUCOSE 100 TO 125 MG/DL IS CONSISTENT WITH IMPAIRED FASTING GLUCOSE. FASTING GLUCOSE >125 MG/DL IS CONSISTENT WITH DIABETES. RANDOM GLUCOSE >200 MG/DL WITH HYPERGLYCEMIC SYMPTOMS IS CONSISTENT WITH DIABETES. PER ADA GUIDELINES BUN 5(L) 6 - 24 MG/DL 10/24/2023 3:28 PM T [facility] CREATININE S/P/B 0.99 0.70 - 1.30 MG/DL 10/24/2023 3:28 PM T [facility] CALCIUM S/P/B 8.1(L) 8.4 - 10.5 MG/DL 10/24/2023 3:28 PM [facility] BILIRUBIN TOTAL S/P/B 0.4 0.2 - 1.0 MG/DL 10/24/2023 3:28 PM T [facility] Comment: THIS ASSAY IS NOT RECOMMENDED FOR PATIENTS UNDERGOING TREATMENT WITH ELTROMBOPAG DUE TO THE POTENTIAL FOR FALSELY ELEVATED RESULTS. ALKALINE PHOSPHATASE S/P/B 71 45 - 115 U/L 10/24/2023 3:28 PM T [facility] AST 14(L) 15 - 37 U/L 10/24/2023 3:28 PM [facility] ALT 31 16 - 63 U/L 10/24/2023 3:28 PM T [facility] TOTAL PROTEIN S/P/B 6.1(L) 6.4 - 8.2 G/DL 10/24/2023 3:28 PM [facility] ALBUMIN S/P/B 3.3(L) 3.4 - 5.0 G/DL 10/24/2023 3:28 PM [facility] ANION GAP 8.3 5.0 - 15.0 MMOL/L 10/24/2023 3:28 PM T [facility] OSMOLALITY (CALC) 284 MOSM/KG 05/16/2 024 3:28 PM CDT [facility] Comment:REFERENCE RANGE NOT ESTABLISHED GFR ESTIMATE >90 >89 ML/MIN/1. 73 M2 10/24/2023 3:28 PM CDT [facility] GFR NOTES GFR REFERENCE S: 10/24/2023 3:28 PM CDT [facility] Comment: THE ESTIMATED GFR IS [...] CDT Sathish Gay DO LABORATORY Final Result [facility] [address] [place] [address], * (ABNORMAL) CBC W/DIFF AUTOMATED (10/24/2023 3:07 PM CDT) WBC 10.23 4.00 - 10.80 x10'3/uL 10/24/2023 3:14 PM CDT [facility] RBC 5.38 4.50 - 6.10 x10'6/uL 10/24/2023 3:14 PM CDT [facility] HGB 16.5 13.0 - 18.0 G/DL 10/24/2023 3:14 PM CDT [facility] HCT 48.3 37.0 - 52.0 % 10/24/2023 3:14 PM CDT [facility] MCV 89.8 78.0 - 100.0 FL 10/24/2023 3:14 PM CDT [facility] MCH 30.7 27.0 - 31.0 PG 10/24/2023 3:14 PM CDT [facility] MCHC 34.2 33.0 - 36.0 G/DL 10/24/2023 3:14 PM CDT [facility] RDW 13.4 11.5 - 14.5 % 10/24/2023 3:14 PM CDT [facility] PLT 210 150 - 350 x10'3/uL 10/24/2023 3:14 PM CDT [facility] MPV 11.6(H) 7.4 - 10.4 FL 10/24/2023 3:14 PM CDT [facility] CBC COMMENT NORMAL REFERENCE RANGE NOT ESTABLISHED FOR THE PROPORTIONAL LEUKOCYTE DIFFERENTIAL. 10/24/2023 3:14 PM CDT [facility] NEUTROPHILS % 67.8 % 10/24/2023 3:14 PM CDT [facility] LYMPHOCYTES % 21.5 % 10/24/2023 3:14 PM CDT [facility] MONOCYTES % 6.0 % 10/24/2023 3:14 PM CDT [facility] EOSINOPHILS % 4.0 % 10/24/2023 3:14 PM CDT [facility] BASOPHILS % 0.6 % 10/24/2023 3:14 PM CDT [facility] IMMATURE GRANS % 0.1 % 10/24/19 3:14 PM CDT [facility] NRBC 0.0 % 10/24/2023 3:14 PM CDT [facility] ABS. NEUTROPHILS 6.94 1.60 - 8.30 x10'3/uL 10/24/2023 3:14 PM CDT [facility] ABS. LYMPHOCYTES 2.20 0.80 - 4.70 x10'3/uL 10/24/2023 3:14 PM CDT [facility] ABS. MONOCYTES 0.61 0.00 - 1.50 x10'3/uL 10/24/2023 3:14 PM CDT [facility] ABS. EOSINOPHILS 0.41(H) 0.00 - 0.40 x10'3/uL 10/24/2023 3:14 PM CDT [facility] ABS. BASOPHILS 0.06 0.00 - 0.20 x10'3/uL 10/24/2023 3:14 PM CDT [facility] ABS. IMMATURE GRANULOCYTES 0.01 0.00 - 0.03 x10'3/uL 10/24/2023 3:14 PM CDT [facility] ABS. NUCLEATED RBC'S 0.00 0.00 x10'3/uL 10/24/2023 3:14 PM CDT [facility] 10/24/2023 3:07 PM CDT Sathish Gay DO LABORATORY Final Result [facility] [address] [phone] documented in this encounter Visit Diagnoses Diagnosis Cellulitis of left upper extremity- Primary Cellulitis and abscess of upper arm and forearm documented in this encounter Care Teams Anesthesia Technician Relationship Specialty Start Date End Date Julio César Tello MD [address] [place] [phone] PCP - General FAMILY PRACTICE 04/10/23 documented as of this encounter
--- OUTSIDE RECORDS SUMMARY | 2024-05-28 03:19 | XMS_ITS | Encounter Summary ---
Author Organization [facility] Address [address] [place] [address]. [place] [address] [place] [address] Care Team Providers Care Law Office Receptionist Name Role Phone Tom Mckeon MD Primary Care Provider [phone] Reason for Visit * Reason Comments Psychiatric Problem Encounter Details Date Type Department Care Team (Late st Contact Info) Description 02/06/2019 7:30 PM CDT - 02/07/2019 1:25 AM CDT Emergency [place] [facility] [place] [facility] 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 * Bipolar Disorder Discharge Instructions (Citizen [place]) documented in this encounter Medications at Time [...] 2 YEARS THAT LAST SEVEN MONTHS IN [place]. PT STATES ON Saturday BEGAN FEELING MANIC. PT C/O NOT SLEEPING AND NOT EATING. PT STATES IS CURRENTLY HOMELESS AND HAS SPENT THE LAST 2 NIGHTS AT THE BUS STOP IN [place]. PT APPEARS CALM, DENIES ANY SUICIDAL OR [...] states that he recently got out of senior living and has not been on his medication for the past x3 months due to being in senior living. He mentions that he was taking Lamictal, [...] He notes that he has dealt with [facility] in the past and has felt like [...] Medical History: Diagnosis Date ??? Bipolar disorder ([facility]) PAST SURGICAL HISTORY: History reviewed. No pertinent [...] 02/07/2019, Until 02/22/2019, Eprescribe Class: Eprescribe Pharmacy: [facility] [address] [place] [address] (Ph #: [phone]) trazodone 50 MG tablet Take 1 tablet (50 mg total) by mouth nightly at bedtime for 15 days., Starting 02/07/2019, Until 02/22/2019, Eprescribe Class: Eprescribe Pharmacy: [facility] [address] [place] [address] (Ph #: [phone]) Tom Mckeon MD [address] [place] [address] In 3 days MDM Number of Diagnoses [...] to contacting follow up resources for him. [RUG MEASURER] ED Course User Index [RUG MEASURER] Sj Calvin MD Clinical Impression Bipolar affective [...] RN) documented in this encounter Care Teams Law Office Receptionist Relationship Specialty Start Date End Date Tom Mckeon MD [address] [place] [address] [place] [phone] PCP - General FAMILY PRACTICE 02/06/19 04/09/23 documented as of this encounter
--- OUTSIDE RECORDS SUMMARY | 2024-05-28 03:19 | XMS_ITS | Encounter Summary ---
Author Organization [facility] Address [address] [place] [address]. 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
--- OUTSIDE RECORDS SUMMARY | 2024-05-28 03:19 | XMS_ITS | Clinical Summary ---
Author Organization [facility] Address [address] [place] [address]. 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
--- OUTSIDE RECORDS SUMMARY | 2024-05-28 03:19 | XMS_ITS | Encounter Summary ---
Author Organization [facility] Address [address] [place] [address]. 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
--- OUTSIDE RECORDS SUMMARY | 2024-05-28 03:19 | XMS_ITS | Encounter Summary ---
Author Organization [facility] Address [address] [place] [address]. [place], [place] [address] [place] [address] Care Team Providers Care Sr. Vendor Management Associate Name Role Phone Julio César Tello MD Primary Care Provider [phone] Reason for Referral * Procedure (Routine) - New Request Specialty Diagnoses / Procedures Referred By Contac t Referred To Contact Diagnoses Chronic cough Procedures Complete PFT (pre/post Surjit, Lung Vol, Diff Capacity) (85002, 98812, 99819, 57151) Annabel Cordoba PA [address] [place] [address] Phone: tel: fax: Referral ID Status Reason Start Date Expiration Date V isits Requested Visits Authorized [id number] New Request 12/18/2023 01/17/2025 1 1 Reason for Visit * Procedure (Routine) - New Request Specialty Diagnoses / Procedures Referred By Contac t Referred To Contact Diagnoses Chronic cough Procedures Complete PFT (pre/post [place], Lung Vol, Diff Capacity) (00487, 74613, 72400, 72762) Annabel Cordoba PA [address] [place] [address] Phone: tel: fax: Referral ID Status Reason Start Date Expiration Date V isits Requested Visits Authorized [id number] New Request 12/18/2023 01/17/2025 1 1 Encounter Details Date Type Department Care Team (Late st Contact Info) Description 01/15/2024 8:43 AM CDT - 01/15/2024 10:18 AM CDT Hospital Encounter [facility] [address] [place] [address] Annabel Cordoba PA [address] [place] [address] Discharge Disposition: Home or Self Care (Routine [...] on file 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 Gender Identity Not on file Sexual Orientation [...] PFT (pre/post Surjit, Lung Vol, Diff Capacity) (13490, 81869, 68863, 28010) (01/15/2024 8:43 AM CDT) 01/15/2024 8:43 AM CDT Narrative ESCRIPTION - 01/20/2024 12:44 PM CDT Patient Name: RADHA CARTWRIGHT Date of : 1980 Account: [id number] Facility: [facility] Location: [facility] Date of Service: 01/15/2024 Pulmonary Function Test [...] Chastity MIN MD D: ??01/16/2024 09:12 PM ??#[id number] T: ??01/16/2024 09:31 PM ??/NIT A copy [...] puffs documented in this encounter Care Teams Sr. Vendor Management Associate Relationship Specialty Start Date End Date Julio César Tello MD [address] [address] PCP - General FAMILY PRACTICE 04/10/23 documented as of this encounter
--- OUTSIDE RECORDS SUMMARY | 2024-05-28 03:19 | XMS_ITS | Encounter Summary ---
Author Organization [facility] [place] Address [address] [place] [address]. 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
--- OUTSIDE RECORDS SUMMARY | 2024-05-28 03:19 | XMS_ITS | Encounter Summary ---
Author Organization [facility] Address [address] [place] [address]. [place], [place] [address] [place] [address] Care Team Providers Care Egg Buyer Name Role Phone Julio César Tello MD Primary Care Provider Reason for Referral * Imaging (Routine) - Closed Specialty Diagnoses / Procedures Referred By Veronique babcock Referred To Contact RADIOLOGY Diagnoses Family history of abdominal aortic aneurysm Procedures USV AORTA ILIAC IVC DUPLEX COMP Julio César Tello MD [address] [place] [address] Phone: tel: fax: Referral ID Status Reason Start Date Expiration Date Visits Re quested Visits Authorized [id number] Closed 05/20/2023 08/18/2023 1 1 ENGINEER Reason for Visit * Imaging (Routine) - Closed Specialty Diagnoses / Procedures Referred By Veronique babocck Referred To Contact RADIOLOGY Diagnoses Family history of abdominal aortic aneurysm Procedures USV AORTA ILIAC IVC DUPLEX COMP Julio César Tello MD [address] [place] [address] Phone: tel: fax: Referral ID Status Reason Start Date Expiration Date Visits Re quested Visits Authorized [id number] Closed 05/20/2023 08/18/2023 1 1 Encounter Details Date Type Department Care Team (Late st Contact Info) Description 07/04/2023 8:48 AM HVAC ENGINEER - 07/04/2023 11:59 PM HVAC ENGINEER Hospital Encounter [facility] [address] [place] [address] Julio César Tello MD [address] [place] [address] Discharge Disposition: Home or Self [...] on file Legal Sex Male 5:59 PM HVAC ENGINEER Gender Identity Not on file Sexual Orientation [...] IVC DUPLEX COMP Routine 07/04/2023 9:18 AM HVAC ENGINEER Family history of abdominal aortic aneurysm documented in this encounter Results * USV AORTA ILIAC IVC DUPLEX COMP (07/04/2023 9:18 AM HVAC ENGINEER) Anatomical Region Laterality Modality NA Ultrasound 07/04/2023 11:3 2 AM HVAC ENGINEER Impressions 07/04/2023 11:35 AM HVAC ENGINEER IMPRESSION: Technically limited due to morbid obesity. No significant aneurysmal dilatation of the aortobiiliac arteries. Elevated bilateral iliac velocities may be tortuosity or stenosis related. Consider a workup with CT angiogram aorta. Ordered By: JULIO CÉSAR TELLO Interpreted By: Lui Mccall MD, 07/04/2023 11:32 AM Narrative 07/04/2023 11:35 AM HVAC ENGINEER Examination: USV AORTA ILIAC IVC DUPLEX COMP [...] diseases documented in this encounter Care Teams Egg Buyer Relationship Specialty Start Date End Date Julio César Tello MD [address] [place] [address] PCP - General FAMILY PRACTICE 04/10/23 documented as of this encounter
--- OUTSIDE RECORDS SUMMARY | 2024-05-28 03:19 | XMS_ITS | Encounter Summary ---
Author Organization [facility] Address [address] [place] [address]. 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
--- OUTSIDE RECORDS SUMMARY | 2024-05-28 03:19 | XMS_ITS | Encounter Summary ---
Author Organization [facility] Address [address] [place] [address]. 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
--- OUTSIDE RECORDS SUMMARY | 2024-05-28 03:19 | XMS_ITS | Encounter Summary ---
Author Organization [facility] Address [address] [place] [address]. [place], [place] [address] [place] [address] Care Team Providers Care Buyer Tobacco Head Name Role Phone Unavailable Primary Care Provider Unavailabl e Encounter Details Date Type Department Care Team (Late st Contact Info) Description 08/02/1996 Abstract [facility] [address] [place] [address] , Generic Conversion, Social History Tobacco Use Types Packs/Day Years Used Date Smoking Tobacco: Never Assessed Sex and Gender Information Value Date Recorded Sex Assigned at Not on file Legal Sex Male 5:59 PM DINKEY LOCOMOTIVE OPERATOR Gender Identity Not on file Sexual Orientation Not on file documented as of this encounter Plan of Treatment Not on file documented as of this encounter Visit Diagnoses Not on filedocumented in this encounter
--- OUTSIDE RECORDS SUMMARY | 2024-05-28 03:19 | XMS_ITS | Encounter Summary ---
Author Organization [facility] Address [address] [place] [address]. [place], [place] [address] [place] [address] Care Team Providers Care Magnet Valve Assembler Name Role Phone Unavailable Primary Care Provider Unavailabl e Encounter Details Date Type Department Care Team (Late st Contact Info) Description 12/18/1996 Abstract [facility] [address] [place] [address] , Generic Conversion, Social History Tobacco Use Types Packs/Day Years Used Date Smoking Tobacco: Never Assessed Sex and Gender Information Value Date Recorded Sex Assigned at Not on file Legal Sex Male 5:59 PM ANALYTICAL TECH Gender Identity Not on file Sexual Orientation Not on file documented as of this encounter Plan of Treatment Not on file documented as of this encounter Visit Diagnoses Not on filedocumented in this encounter
--- OUTSIDE RECORDS SUMMARY | 2024-05-28 03:19 | XMS_ITS | Encounter Summary ---
Author Organization [facility] Address [address] [place] [address]. [place], [place] [address] [place] [address] Care Team Providers Care Bioassayist Name Role Phone Unavailable Primary Care Provider Unavailabl e Encounter Details Date Type Department Care Team (Late st Contact Info) Description 12/02/1997 Abstract [facility] [address] [place] [address] , Generic Conversion, Social History Tobacco Use Types Packs/Day Years Used Date Smoking Tobacco: Never Assessed Sex and Gender Information Value Date Recorded Sex Assigned at Not on file Legal Sex Male 5:59 PM LOCOMOTIVE REPAIRER DIESEL Gender Identity Not on file Sexual Orientation Not on file documented as of this encounter Plan of Treatment Not on file documented as of this encounter Visit Diagnoses Not on filedocumented in this encounter
--- OUTSIDE RECORDS SUMMARY | 2024-05-28 03:19 | XMS_ITS | Encounter Summary ---
Author Organization [facility] Address [address] [place] [address]. [place] [address] [place] [address] Care Team Providers Care Director Of Category Management Name Role Phone Julio César Tello MD Primary Care Provider [phone] Reason for Visit * Reason Comments Dizziness Hypertension Follow Up Encounter Details Date Type Department Care Team (Late st Contact Info) Description 04/10/2023 8:53 AM CDT - 04/10/2023 9:40 AM CDT Emergency [place] [facility] [place] [address] Angel Navas MD [address] [place] [address] Dizziness; Hypertension Follow Up Discharge Disposition: [...] on file Legal Sex Male 5:59 PM GARBAGE PICK UP MAN Gender Identity Not on file Sexual [...] Everywhere. * High Blood Pressure Discharge Instructions (Nigerien) documented in this encounter Medications at Time [...] HYPERTENSIVE URGENCY Julio César Tello MD [address] [place] [address] Keep your appointment, return to the [...] AM CDT) 04/10/2023 8:59 AM CDT Narrative [facility] - 04/10/2023 7:30 PM CDT ? [facility] ?[address] [place], [place] ??[address] ? Test Date: ?2023-04-10 Pat Name: ? RADHA ROBERTS ? Department: ?? 3 ? Room: ? EXAM 404 Gender: ? Male ? Quality Assurance Advisor: ?? : ?1980 ? Requested By: ANGEL NAVAS Order Number: [id number] ? Jamaal LOWE: ?? Natalya Theodore ? Measurements Intervals ?Katy ? Rate: ? 80 ? P: ?62 TX: ? 164 ?QRS: ?42 QRSD: ? 95 ? T: ?42 QT: ? 373 ? QTc: ?432 ? Interpretive Statements SINUS RHYTHM Procedure Note Natalya Theodore MD - 04/10/[address] [place] [address] Test Date: 2023-04-10 Pat Name: [facility] Department: 3 Room: EXAM 404 Gender: Male Quality Assurance Advisor: : 1980 Requested By: ANGEL NAVAS Order Number: [id number] Reading MD: Natalya Theodore Measurements Intervals Katy Rate: 80 P: 62 TX: 164 QRS: 42 QRSD: 95 T: 42 QT: 373 QTc: 432 Interpretive Statements SINUS RHYTHM us Angel Navas MD ECG ORDERABLES Final Result [facility] [place] [facility] documented in this encounter Visit Diagnoses Diagnosis [...] RN) documented in this encounter Care Teams Director Of Category Management Relationship Specialty Start Date End Date Julio César Tello MD [address] [place] [address] PCP - General FAMILY PRACTICE 04/10/23 documented as of this encounter
--- OUTSIDE RECORDS SUMMARY | 2024-05-28 03:19 | XMS_ITS | Encounter Summary ---
Author Organization [facility] Address [address] [place] [address]. [place] [address] [place] [address] Care Team Providers Care Tangible Personal Property Appraiser Name Role Phone Julio César Tello MD Primary Care Provider Reason for Referral * Procedure (Routine) - New Request Specialty Diagnoses / Procedures Referred By Veronique t Referred To Contact Diagnoses Chronic cough Procedures Complete PFT (pre/post Surjit, Lung Vol, Diff Capacity) ([id number], [id number], [id number], [id number]) Annabel Crodoba PA [address] [place] [address] Phone: tel: fax: Referral ID Status Reason Start Date Expiration Date V isits Requested Visits Authorized [id number] New Request 12/18/2023 01/17/2025 1 1 Encounter Details Date Type Department Care Team (Late st Contact Info) Description 12/18/2023 Transcribe Orders [facility] Pre Access Team [address] [place] [address] Annabel Cordoba PA [address] [place] [address] Social History Tobacco Use Types [...] on file Legal Sex Male 5:59 PM CLOUD ENGINEER Gender Identity Not on file Sexual Orientation Not on file documented as of this encounter Plan of Treatment Not on file documented as of this encounter Results * Complete PFT (pre/post [place], Lung Vol, Diff Capacity) (11966, 83435, 58327, 79610) (01/15/2024 8:43 AM CDT) 01/15/2024 8:43 AM CDT Narrative [facility] - 01/20/2024 12:44 PM CDT Patient Name: RADHA ROBERTS Date of : 1980 Account: [id number] Facility: [facility] Location: [facility] Date of Service: 01/15/2024 Pulmonary Function Test [...] Chastity MIN MD D: ??01/16/2024 09:12 PM ??#[id number] T: ??01/16/2024 09:31 PM ??/NIT A copy of this report has been sent to: JULIO CÉSAR TELLO MD(Mlog) us Annabel Cordoba PA PFT ORDERABLES Final Result [facility] documented in this encounter Visit Diagnoses Diagnosis Chronic cough- Primary Cough Chronic cough Cough documented in this encounter Care Teams Tangible Personal Property Appraiser Relationship Specialty Start Date End Date Julio César Tello MD [address] [place] [address] PCP - General FAMILY PRACTICE 04/10/23 documented as of this encounter
--- OUTSIDE RECORDS SUMMARY | 2024-05-28 03:19 | XMS_ITS | Encounter Summary ---
Author Organization [facility] Address [address] [place] [address]. 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
--- OUTSIDE RECORDS SUMMARY | 2024-05-28 03:19 | XMS_ITS | Encounter Summary ---
Author Organization [facility] Address [address] [place] [address]. [place], [place] [address] [place] [address] Care Team Providers Care Order Checker Name Role Phone Unavailable Primary Care Provider Unavailabl e Encounter Details Date Type Department Care Team (Late st Contact Info) Description 01/30/2014 Abstract [facility] [address] [place] [address] Ronnie Alejandro MD [address] [place] [phone] Social History Tobacco Use Types Packs/Day Years Used Date Smoking Tobacco: Never Assessed Sex and Gender Information Value Date Recorded Sex Assigned at Not on file Legal Sex Male 5:59 PM PEANUT GRADER Gender Identity Not on file Sexual Orientation Not on file documented as of this encounter Plan of Treatment Not on file documented as of this encounter Visit Diagnoses Diagnosis Bipolar affective disorder ([facility]) Bipolar disorder, unspecified documented in this encounter
--- OUTSIDE RECORDS SUMMARY | 2024-05-28 03:19 | XMS_ITS | Encounter Summary ---
Author Organization [facility] Address [address] [place] [address]. [place] [address] [place] [address] Care Team Providers Care Steward/Stewardess Third Name Role Phone Tom Mckeon MD Primary Care Provider [phone] Julio César Tello MD Primary Care Provider [phone] Encounter Details Date Type Department Care Team (Late st Contact Info) Description 11/15/2018 Abstract [facility] [address] [place] [address] , Generic Conversion, Social History Tobacco Use Types Packs/Day Years Used Date Smoking Tobacco: Never Assessed Sex and Gender Information Value Date Recorded Sex Assigned at Not on file Legal Sex Male 5:59 PM ESCROW PROCESSOR Gender Identity Not on file Sexual Orientation Not on file documented as of this encounter Plan of Treatment Not on file documented as of this encounter Visit Diagnoses Not on filedocumented in this encounter Care Teams Steward/Stewardess Third Relationship Specialty Start Date End Date Tom Mckeon MD [address] [place] [phone] PCP - General FAMILY PRACTICE 02/06/19 04/09/23 Julio César Tello MD [address] [place] [phone] PCP - General FAMILY PRACTICE 04/10/23 documented as of this encounter
--- OUTSIDE RECORDS SUMMARY | 2024-05-28 03:19 | XMS_ITS | Encounter Summary ---
Author Organization [facility] Address [address] [place] [address]. [place] [address] [place] [address] Care Team Providers Care Automotive Diagnostic Technician Name Role Phone Unavailable Primary Care Provider Unavailabl e Encounter Details Date Type Department Care Team (Late st Contact Info) Description 12/17/2013 Abstract [facility] [address] [place] [address] Sathish Humphreys MD [address] [address] Social History Tobacco Use Types Packs/Day Years Used Date Smoking Tobacco: Never Assessed Sex and Gender Information Value Date Recorded Sex Assigned at Not on file Legal Sex Male 5:59 PM NEWSPAPER EDITOR 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
--- OUTSIDE RECORDS SUMMARY | 2024-05-28 03:19 | XMS_ITS | Encounter Summary ---
Author Organization [facility] Address [address] [place] [address]. [place], [place] [address] [place] [address] Care Team Providers Care Warehouse Logistics Manager Name Role Phone Unavailable Primary Care Provider Unavailabl e Encounter Details Date Type Department Care Team (Late st Contact Info) Description 06/14/2012 Abstract [place] [facility] [address] [place] [address] Social History Tobacco Use Types Packs/Day Years Used Date Smoking Tobacco: Never Assessed Sex and Gender Information Value Date Recorded Sex Assigned at Not on file Legal Sex Male 5:59 PM TRANSMISSION AND COORDINATION ENGINEER Gender Identity Not on file Sexual Orientation Not on file documented as of this encounter Plan of Treatment Not on file documented as of this encounter Visit Diagnoses Diagnosis Suicidal ideation documented in this encounter
--- OUTSIDE RECORDS SUMMARY | 2024-05-28 03:19 | XMS_ITS | Encounter Summary ---
Author Organization [facility] Address [address] [place] [address]. [place], [place] [address] [place] [address] Care Team Providers Care Roofer Helper Name Role Phone Julio César Tello MD Primary Care Provider [phone] Encounter Details Date Type Department Care Team [...] on file Legal Sex Male 5:59 PM CAFE LEAD Gender Identity Not on file Sexual Orientation Not on file documented as of this encounter Plan of Treatment Not on file documented as of this encounter Visit Diagnoses Not on filedocumented in this encounter Care Teams Roofer Helper Relationship Specialty Start Date End Date Julio César Tello MD [address] [facility] [place] [address] PCP - General FAMILY PRACTICE 04/10/23 documented as of this encounter
--- OUTSIDE RECORDS SUMMARY | 2024-05-28 03:20 | XMS_ITS | Encounter Summary ---
Author Organization [facility] Address [address] [place] [address]. [place], [place] [address] [place] [address] Care Team Providers Care Filter Plant Supervisor Name Role Phone Unavailable Primary Care Provider Unavailabl e Encounter Details Date Type Department Care Team (Late st Contact Info) Description 07/15/1995 Abstract [facility] [address] [place] [address] , Generic Conversion, Social History Tobacco Use Types Packs/Day Years Used Date Smoking Tobacco: Never Assessed Sex and Gender Information Value Date Recorded Sex Assigned at Not on file Legal Sex Male 5:59 PM FUNERAL ATTENDANT Gender Identity Not on file Sexual Orientation Not on file documented as of this encounter Plan of Treatment Not on file documented as of this encounter Visit Diagnoses Not on filedocumented in this encounter
--- OUTSIDE RECORDS SUMMARY | 2024-05-28 03:20 | XMS_ITS | Encounter Summary ---
Author Organization [facility] Address [address] [place] [address]. 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
--- OUTSIDE RECORDS SUMMARY | 2024-05-28 03:20 | XMS_ITS | Encounter Summary ---
Author Organization [facility] Address [address] [place] [address]. 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
--- OUTSIDE RECORDS SUMMARY | 2024-05-28 03:20 | XMS_ITS | Encounter Summary ---
Author Organization [facility] Address [address] [place] [address]. 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
--- OUTSIDE RECORDS SUMMARY | 2024-05-28 03:20 | XMS_ITS | Encounter Summary ---
Author Organization [facility] Address [address] [place] [address]. 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
--- OUTSIDE RECORDS SUMMARY | 2024-05-28 03:20 | XMS_ITS | Encounter Summary ---
Author Organization [facility] Address [address] [place] [address]. 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
== END 2024-05-23 20:14 | disposition home or self-care (01) ==
LOC: CHSED 19:48
PROVIDERS: Emergency Provider Internal Medicine Critical Care Medicine; PCP Family Medicine
DX: S61.211A Laceration without foreign body of left index finger without damage to nail, initial encounter (principal); I10 Essential (primary) hypertension; Z23 Encounter for immunization; W26.0XXA Contact with knife, initial encounter
CPT/HCPCS: 12001; 90471; 90715; 99283; A9270; J2003

== ENCOUNTER 2024-06-02 13:04 | Emergency (ER) | payer OTHER, SELFPAY ==
[2024-06-02 13:05] VITALS: BP 144/94; PULSE 98; RESP 18; TEMP 36.8; O2SAT 96
--- NOTE | 2024-06-02 13:15 | WPDWOUNDNOTE ---
Wound Care Note Date/Time: 06/02/24 13:15 History: 43-year-old male presented to the ED on 05/23/2024 for a seizure per laceration over the left index finger. The wound was sutured. The patient returns to the ED for suture removal. No wound drainage. The wound is dry. No erythema pain. Wound approximation: Yes Wound length: 2 cm Drainage: no drainage Surrounding tissue appearance: non erythematous Dressings: Steri-Strips placed after removing the sutures. Assessment and Plan Assessment and plan (1) Laceration: Status: Acute Plan finger laceration status post suturing Suture removal Review of Systems Review of Systems: All systems reviewed & are unremarkable except as noted in HPI and below Constitutional: Constitutional: Reports as per HPI and Reports no additional constitutional complaints Eyes: Eyes: Reports as per HPI Exam Const: General: comfortable and no acute distress HENMT: Face/Nose/Sinus: Normal nares present Mouth: Yes moist mucous membranes Eyes: General: appearance normal, both eyes and all related structures Sclera: sclerae normal Pupils: Equal, round and reactive pupils present EOM: EOMs intact bilaterally Neck: Neck: supple Resp: Effort & Inspection: normal respiratory effort Auscultation: clear to auscultation bilaterally Cardio: Rate: regular rate Rhythm: regular rhythm GI: GI Palp: Yes Soft to palpation Skin: Other: 2 cm C-shaped laceration on the index finger of the left hand looks healthy. Laceration appears to have healed. Neuro: General: gait normal Speech: normal speech Motor exam (neuro): 5/5 motor strength present throughout Extrem: General: normal to inspection and normal exam except as noted Psych: Mental Status: mental status grossly normal Affect: normal affect
== END 2024-06-02 13:45 | disposition home or self-care (01) ==
PROVIDERS: Emergency Provider Internal Medicine Critical Care Medicine; PCP Family Medicine
DX: Z48.02 Encounter for removal of sutures (principal)
CPT/HCPCS: 99281